=== PATIENT | female | born 1970 | race African-American/Black ===

== ENCOUNTER 2017-01-09 09:47 | Emergency (ER) | payer OTHER ==
[~2017-01-09] VITALS: Ht 157.5 cm; Wt 59.0 kg
[~2017-01-09 09:47] MED LIST: ALBUTEROL INHAL17 GM IH; ALDACTONE100 MG PO; ALDACTONE25 MG PO; ATIVAN0.5 MG PO; ATIVAN1 MG PO; AZITHROMYCIN 2250 MG PO; B-121000 MCG PO; CARAFATE 11 GM/10 M1 PO; CIPROFLOXACIN500 M1 PO; FLAGYL500 MG PO; FOLIC ACID 1 MG1 MG PO; FUROSEMIDE 40 M40 M1 PO; FUROSEMIDE 40 M40 MG PO; INDERAL PO; IRON325 PO; K-DUR 20 MEQ T20 MEQ PO; LACTULOSE PO; LACTULOSE20 GM/30 M PO; LEXAPRO 10 MG T10 MG PO; MEPHYTON 5 MG TA5 M1 PO; MULTI-VITAMIN1 EAC5 PO; MULTIVITAMINS1 EAC7 PO; NOHOMEMEDICATIONS; NORCO 7.5-3251 EACH PO; PHENERGAN-CODE120 ML PO; PREDNISONE 10 M10 M1; PRENATAL; PRENATAL COMPL1 EACH PO; PRENATAL MULTI1 EAC2 PO; PRENATAL PLUS1 EAC5 PO; PROAIR HFA8.5 GM INH; PROPRANOLOL 1010 MG PO; PROTONIX40 M2 PO; UNISOM50 MG PO; VITAMIN B-1100 MG PO; VITAMIN B-12500 MCG PO; VITAMIN D 5050000 I1 PO; XANAX 1 MG TABLE1 MG PO; ZYPREXA5 MG PO
[2017-01-09] MEDS ORDERED: LASIX 20 MG TAB20 MG PO (10:56)
[2017-01-09] MEDS ORDERED: PROPRANOLOL 1010 MG PO (10:56)
[2017-01-09] MEDS ORDERED: ZYRTEC10 M5 PO (10:57)
[2017-01-09] MEDS ORDERED: NORCO 5-325 TA1 EACH PO (11:09)
== END 2017-01-09 12:04 | disposition home or self-care (01) ==
LOC: ER 09:47
DX: S16.1XXA Strain of muscle, fascia and tendon at neck level, initial encounter (principal); S05.11XA Contusion of eyeball and orbital tissues, right eye, initial encounter; S09.90XA Unspecified injury of head, initial encounter; K74.60 Unspecified cirrhosis of liver; F32.9 Major depressive disorder, single episode, unspecified; G47.00 Insomnia, unspecified; F41.9 Anxiety disorder, unspecified; Z98.84 Bariatric surgery status; V43.52XA Car driver injured in collision with other type car in traffic accident, initial encounter; Y93.I9 Activity, other involving external motion; Y92.488 Other paved roadways as the place of occurrence of the external cause; Y99.8 Other external cause status

== ENCOUNTER 2019-01-03 13:07 | Emergency (ER) | payer OTHER ==
[~2019-01-03] VITALS: Ht 157.5 cm; Wt 81.7 kg
[~2019-01-03 13:07] MED LIST changes: +LASIX 20 MG TAB20 MG PO; +NORCO 5-325 TA1 EACH PO; +ZYRTEC10 M5 PO
[2019-01-03 14:35] LABS: ABSOLUTE NEUTROPHILS 3.7 thou/uL (1.4-8.2); BASOPHILS 0.2 % (0.0-2.0); EOSINOPHILS 1.4 % (0.0-3.0); HEMATOCRIT 35.2 % (37.0-47.0); LYMPHOCYTES 16.3 % (24.0-44.0); MCH 30.7 pg (26.0-34.0); MCV 90.3 fL (80.0-100.0); MONOCYTES 2.4 % (1.0-8.0); POLYS 79.7 % (36.0-66.0); RDW 13.2 % (10.5-14.5); WBC 4.7 thou/uL (4.0-11.0)
[2019-01-03 14:42] LABS: ANION GAP 11 mmol/L (7-16); BUN 15 mg/dL (7-18); CALCIUM 9.4 mg/dL (8.5-10.1); CHLORIDE 110 mmol/L (98-107); CO2 23 mmol/L (21-32); CREATININE 1.1 mg/dL (0.6-1.0); GLUCOSE 129 mg/dL (74-106); POTASSIUM 4.8 mmol/L (3.5-5.1); SODIUM 144 mmol/L (136-145)
[2019-01-03 14:52] LABS: ALBUMIN 3.3 g/dL (3.4-5.0); SGOT 24 U/L (15-37); SGPT 24 U/L (30-65); TOTAL BILIRUBIN 0.4 mg/dL (<0.1-1.0); TOTAL PROTEIN 7.4 g/dL (6.4-8.2); TROPONIN-I <0.06 ng/mL (<0.06)
[2019-01-03 14:53] LABS: PLATELET COUNT 97 thou/uL (150-400)
[2019-01-03 14:54] LABS: LARGE PLATELETS FEW
[2019-01-03 16:50] VITALS: BP 122/84
--- NOTE | 2019-01-04 09:28 | EKG ---
[place] [address] [facility] [place] [address] ELECTROCARDIOGRAM REPORT Name: TRACEY SIMS [id number] ������������������ Admission: 01/03/19 ������������������ Attend Phys: Discharge: 01/03/19 ������������������ Date of : 68 Report #: [id number] ����������������������������������������������������������������� [id number] THIS REPORT FOR: //name// [facility] ED Test Date: 2019-01-03 Test Time: 14:41:18 Pat Name: TRACEY SIMS Department: Room: Gender: F Er Registrar: mike : 1970 Requested By: Scott Rowan Order Number: [id number] MD: [place] Measurements Intervals [place] Rate: 91 P: 46 WY: 143 QRS: 38 QRSD: 80 T: 41 QT: 352 QTc: 434 Interpretive Statements Sinus rhythm Abnormal R-wave progression, early transition Baseline wander in lead(s) V1 Compared to ECG 05/29/2012 22:15:45 Sinus tachycardia no longer present Electronically Signed On 01-04-2019 9:28:30 CDT by [place] [email or web address] ��������������������������������������������� <ELECTRONICALLY SIGNED> ���������������������������������������� By: [place] MD, [facility] ��������������������������������������������� 01/04/19 0928 [id number] [place] MD, [facility] /EPI
== END 2019-01-03 16:30 | disposition home or self-care (01) ==
LOC: ER 13:07
PROVIDERS: Emergency Medicine
DX: M25.552 Pain in left hip (principal); F41.9 Anxiety disorder, unspecified; F32.9 Major depressive disorder, single episode, unspecified; G47.00 Insomnia, unspecified; Z98.84 Bariatric surgery status; W05.0XXA Fall from non-moving wheelchair, initial encounter; Y93.89 Activity, other specified; Y92.89 Other specified places as the place of occurrence of the external cause; Y99.8 Other external cause status

== ENCOUNTER 2019-09-12 22:40 | Emergency (ER) | payer OTHER ==
[~2019-09-12] VITALS: Ht 157.5 cm; Wt 99.8 kg
[2019-09-13 00:55] LABS: ABSOLUTE NEUTROPHILS 2.1 thou/uL (1.4-8.2); BASOPHILS 2.3 % (0.0-2.0); EOSINOPHILS 3.9 % (0.0-3.0); HEMATOCRIT 38.8 % (37.0-47.0); HEMOGLOBIN 12.6 gm/dL (12.0-15.0); LYMPHOCYTES 34.3 % (24.0-44.0); MCHC 32.5 g/dL (28.0-37.0); MCV 92.2 fL (80.0-100.0); MONOCYTES 7.7 % (1.0-8.0); PLATELET COUNT 112 thou/uL (150-400); POLYS 51.8 % (36.0-66.0); RBC 4.21 mil/uL (4.20-5.00); RDW 13.8 % (10.5-14.5); WBC 4.1 thou/uL (4.0-11.0)
[2019-09-13 00:57] LABS: CALCIUM 8.3 mg/dL (8.5-10.1); CREATININE 1.1 mg/dL (0.6-1.0); POTASSIUM 3.9 mmol/L (3.5-5.1)
[2019-09-13 01:25] LABS: URINE BILIRUBIN NEGATIVE (Negative); URINE BLOOD TRACE (Negative); URINE CLARITY CLOUDY; URINE COLOR YELLOW; URINE GLUCOSE-RANDOM* NEGATIVE (Negative); URINE KETONES NEGATIVE (Negative); URINE PROTEIN (DIPSTICK) NEGATIVE (Negative); URINE UROBILINOGEN 0.2 E.U./dl (0.2-1.0)
[2019-09-13 01:30] LABS: URINE LEUKOCYTES-REFLEX 3+ (Negative); URINE NITRITE-REFLEX POSITIVE (Negative)
[2019-09-13 01:45] LABS: BACTERIA-REFLEX >30 Many /HPF (None Seen); CASTS None Seen /LPF (None Seen); CRYSTALS None Seen /LPF (None Seen); MUCUS 0-3 Light strn/LPF (None Seen); SQUAMOUS 4-10 Moderate /LPF (0-3); URINE RBC 3-10 Few /HPF (0-2); URINE WBC-REFLEX >25 Many /HPF (0-5); WBC CLUMPS Moderate (None Seen)
[2019-09-13] MEDS ORDERED: KEFLEX500 M1 PO (02:16)
[2019-09-13] MEDS ORDERED: LASIX 20 MG TAB20 MG PO (02:17)
[2019-09-13 02:45] VITALS: BP 127/65
== END 2019-09-13 02:50 | disposition home or self-care (01) ==
LOC: ER 22:40
PROVIDERS: Emergency Medicine
DX: N39.0 Urinary tract infection, site not specified (principal); R60.0 Localized edema; F41.9 Anxiety disorder, unspecified; F32.9 Major depressive disorder, single episode, unspecified

== ENCOUNTER → 2020-02-18 | Outpatient (CLI) | payer OTHER ==
[~2020-02-18] VITALS: Ht 157.5 cm; Wt 90.7 kg
[~2020-02-18] MED LIST changes: +AMITRIPTYLINE H25 M4 PO; +BACLOFEN 10MG T10 MG PO; +DULCOLAX STOOL100 M1 PO; +FLOMAX0.4 MG PO; +GABAPENTIN600 M1 PO; +KEFLEX500 M1 PO; +KEPPRA100 MG/1 M PO; +MELOXICAM15 MG PO; +MONTELUKAST PO; +NUCYNTA ER100 MG PO; +NUCYNTA50 MG PO; +PERCOCET 5-3251 EACH PO; +PROTONIX 20 MG20 M1 PO; -PROTONIX40 M2 PO; +SEROQUEL 100 M100 M1 PO; +SERTRALINE HCL100 MG PO; +WELLBUTRIN SR150 M1 PO
--- NOTE | ~2020-02-18 | HPC ---
[facility] [place] [address] PAIN MANAGEMENT CONSULTATION Name: TRACEY SIMS Room #: REG [facility] Wayne.#: [id number] Admission: 02/18/20 Attend Phys: Aden Jacob DO Discharge: Date of : 68 Report #: [id number] THIS REPORT FOR: cc: Lin Kennedy Beth RNP Johnson, James E. DO ~ CC: Lin Jacob DATE OF SERVICE: 02/18/2020 REFERRING PHYSICIAN: ZEN David CHIEF COMPLAINT: Left hemibody pain. HISTORY OF PRESENT ILLNESS: As you know, the patient is a very unfortunate 49-year-old female who suffered a cerebrovascular accident on 06/22/2017, leaving her with hemiparesis of the left side. This also led to pain throughout the left upper extremity and lower extremity. The residual deficits from the cerebrovascular accident remained today. She has gained very little function back. She continues to experience pain at level anywhere from 6-8/10. The patient sought evaluation and treatment through various pain services having undergone multiple ineffective treatments including peripheral nerve stimulator to address left upper extremity pain, which gave no improvement in symptoms. She has undergone a spinal cord stimulator, which gave no improvement in symptoms and subsequently became infected and had to be removed. She has also been trialed on various medications, most effective to date has been Nucynta. She was provided Nucynta ER 50 mg 3 times a day along with use of oxycodone for breakthrough pain. The patient reported no improvement with oxycodone, only side effects of sleepiness, disorientation and confusion. She did receive excellent benefit with the Nucynta ER version, but the most recent prescription was for IR and was providing no long-term benefit. She sought evaluation through her primary care physician who requested that the patient undergo evaluation for a second opinion for treatment options. She was subsequently referred to our clinic. The patient reports today her pain is continuous, steady and constant, describes the pain as shooting, aching, cramping, throbbing, pounding, sharp, tendering, numbness and tingling. Places current pain score at 8/10, daily average at 7-8/10, worst pain has been is 10/10. The patient states that pain is exacerbated with any activity, transitioning from a wheelchair to bed. Pain is improved with elevation, medication management, heat and cold compresses and massage and rubbing. She has been referred to our service to discuss treatment options for left-sided body pain, status post cerebrovascular accident with residual deficits of left hemiparesis. [address] [address] PAIN MANAGEMENT CONSULTATION Name: TRACEY SIMS Room #: REG [facility] Wayne.#: [id number] Admission: 02/18/20 Attend Phys: Aden Jacob DO Discharge: Date of : 68 Report #: [id number] PAST MEDICAL HISTORY: 1. Cerebrovascular accident with residual left hemiparesis. 2. Bleeding tendencies. 3. Progressive liver disease. 4. Emotional problems such as anxiety and depression. 5. Degenerative joint disease. 6. Osteoarthritis. 7. Uncontrolled hypertension. PAST SURGICAL HISTORY: Brain surgery, 06/23/2017, status post CVA. SOCIAL HISTORY: The patient denies tobacco, alcohol, IV or illicit drug use. 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 She is not in litigation in regards to pain. She is accompanied by her in room today. REVIEW OF SYSTEMS: Positive for weight gain, decrease in appetite, left hemiparesis, breast pain, numbness and tingling sensations, paralysis, stroke, head injury, nervousness, depression, insomnia, left body hemiparesis and left body pain. All other review of systems negative per 12-point review of systems other than those listed in history of present illness. Pain impact score 47/70 indicating [id number] interference of daily activities secondary to pain. ALLERGIES: No known drug allergies. CURRENT MEDICATIONS: Tamsulosin 0.4 mg once a day, quetiapine 100 mg per day, meloxicam 15 mg once a day, Nucynta IR 50 mg twice a day, baclofen 10 mg 3 times a day, gabapentin 600 mg 3 times a day, Percocet 5/325 one tab p.o. q.8 hours p.r.n. for pain, docusate sodium 100 mg per day, amitriptyline 25 mg per day, sertraline 100 mg per day, bupropion SR 150 mg per day, montelukast sodium 10 mg per day, Keppra 100 mg twice a day, propranolol 10 mg 2 tabs p.o. q.a.m., pantoprazole 20 mg per day. IMAGING: No imaging available. PQRS: The patient has known arthritic changes of the bilateral knees, bilateral hips and lumbar spine. No diagnosis of rheumatoid arthritis. She is placing pain score at 8/10. She is a fall risk, but has not had a fall in last 3 months. She is wheelchair bound. She is not on blood thinners, but is treated for hypertension. She is on chronic opioids with a low opioid addiction potential based on our assessment tool. Pain impact is 47/70, moderate to severe interference of daily activities secondary to pain. [facility] [address] [place] [address] PAIN MANAGEMENT CONSULTATION Name: TRACEY SIMS Room #: REG [facility] Wayne.#: [id number] Admission: 02/18/20 Attend Phys: Aden Jacob DO Discharge: Date of : 68 Report #: [id number] PHYSICAL EXAMINATION: VITAL SIGNS: Blood pressure 105/80, pulse is 72, respiratory rate 14 and unlabored. The patient is 98% on room air. Height 5 feet 2 inches tall, weight 200 pounds, BMI calculated 36.6. GENERAL: Well-developed, well-nourished 49-year-old female, wheelchair bound with left-sided hemiparesis, appearing her stated age. She is in moderate distress secondary to pain, placing current pain score at 8/10. HEENT: Normocephalic, atraumatic. Pupils are round and reactive. NEUROLOGIC: Speech is altered due to a stroke and residual deficits. LUNGS: Clear, no wheeze, rhonchi or rales. CARDIOVASCULAR: Regular. No appreciable gallop, no rub. ABDOMEN: Soft, obese, normoactive bowel sounds. EXTREMITIES: Show no clubbing, no cyanosis. There is significant edema of the musculature of the left upper extremity and lower extremity. MUSCULOSKELETAL: The patient has minimal function of the left upper extremity and left lower extremity secondary to residual CVA deficits. There is some 1+ nonpitting left lower extremity edema. There is decreased tactile sensation throughout multiple dermatomes on the left, normal dermatomal sensation on the right. ASSESSMENT: 1. Cerebrovascular accident with residual deficits. 2. 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 3. Left hemibody pain secondary to cerebrovascular accident. 4. Chronic osteoarthritis of the bilateral knees. 5. Chronic intractable pain. 6. Opioid dependency. PLAN: 1. Based on today's physical exam and history the patient has provided, the description the patient uses in regards to pain as well as location of symptoms, the source appears to be thalamic in nature. The patient has been treated for peripheral pain generators unsuccessfully. She has undergone percutaneous stimulation of the shoulder, which has provided no benefit. She has also undergone an implantation of a spinal cord stimulator to address peripheral nerve radiculopathy from the lumbar spine, which is not the source of the patient's left lower extremity symptoms. All symptoms are related to a more centralized area secondary to this cerebrovascular accident and these treatment options were found to be unsuccessful. The patient reports no improvement with either of these devices. She did see improvement with medications which is consistent with more centralized pain pattern. We discussed at length over an hour and 20 minutes of time, the available treatment options. Unfortunately, there are limitations to therapy in regards to these issues. We discussed the options we have available. Following was discussed with the patient today. We discussed physical therapy, stretching exercises and mobility techniques, which could improve the patient's left hemiparetic pain. This can be done either [address] [address] PAIN MANAGEMENT CONSULTATION Name: TRACEY SIMS Room #: REG [facility] [place]#: [id number] Admission: 02/18/20 Attend Phys: Aden Jacob DO Discharge: Date of : 68 Report #: [id number] passively or actively as the patient may gain some function, though this is limited in its scope it could provide some improvement. We discussed medication management utilizing medications, which have neuropathic components for treatment. These would include medications such as nortriptyline, amitriptyline, Cymbalta, Lyrica, gabapentin as well as the more novel medications for pain such as Nucynta, which have not only mu receptor agonists, but also norepinephrine reuptake inhibition, which can provide neuropathic pain control. Other options could include methadone, which will provide a multifactorial treatment affecting not only the mu receptor but also norepinephrine reuptake and NMDA receptor effects. We also discussed surgical techniques, which may help with some of the symptoms that she is experiencing such as a total knee arthroplasty to affect arthritic changes of the knees that is still functioning well. After this long discussion, the patient chose to begin with medication management. The patient has done very well with Nucynta in the past, she was on 50 mg of Nucynta in the extended release formulation. She was taking this 3 times a day. At some point in time, she has had a change in the medication. Her current medication dosing is 50 mg of Nucynta immediate release, which is providing benefit, but unfortunately for a very short period of time. We recommend adjustments back to the ER version of medication. The fact the patient is taking both Nucynta ER and utilizing Percocet for breakthrough would indicate that a higher dose of mu agonist would be necessary. We recommend an increase to 100 mg of Nucynta ER twice a day. This will give the patient equivalent efficacy as she is seeing with both the Nucynta IR and Percocet at present. We recommend that she start this medication at this dose, specifically to gain analgesic benefit and potentially reduce her reliance on immediate release formulations which will be problematic long-term. We have provided the patient with a prescription of Nucynta ER 100 mg dose b.i.d. I have given the patient #60 tablets. The patient was advised that coverage of this medication can be sometimes difficult, though I believe given her history of lack of efficacy with other therapies, this should be a considered option for treatment. She was provided a prescription in written form today to take to her local pharmacy. 2. Our plans are to stabilize the patient on medication, optimize therapy for analgesic benefit and return her care to primary team for continuation of the treatment. We have reviewed the patient's neuropathic medications. Currently, she is taking amitriptyline at 25 mg p.o. at bedtime. This could be increased all the way to 150 mg if necessary. We will have to watch for side effects with its use. There is also a potential of increasing her gabapentin as she is only taking 600 mg 3 times a day at present. This could be escalated to 1200 mg 3 times a day as adjunctive treatment option and neuropathic pain control. We will make adjustments slowly initially so that we do not cause more dysfunction in the patient and measure the efficacy of each ulceration. The patient is agreeable with plan. [address] [address] PAIN MANAGEMENT CONSULTATION Name: TRACEY SIMS Room #: REG [facility] [place]#: [id number] Admission: 02/18/20 Attend Phys: Aden Jacob DO Discharge: Date of : 68 Report #: [id number] 3. The patient currently has peripheral nerve stimulator implanted affecting the left upper extremity. She is receiving no benefit with this device. It will ultimately have to be removed. I have advised the patient to follow up with the surgeon who implanted for explantation of this device. 4. We have plans to see the patient back in followup visit in approximately 2-3 weeks. At that time, review the efficacy of the medication changes made today, determine if the other treatment options such as increasing amitriptyline and gabapentin will be necessary. We are hopeful the patient will see good and prolonged benefit with the therapy changes made today. 5. We wish to thank nurse practitioner, Lin Kennedy for the referral of the patient to our clinic. We will keep you apprised of her response to treatment as we adjust her medications to optimize therapy. Once this is completed, we will be returning the patient to her primary care to continue the treatment. We are hopeful the patient will see good improvement with adjustments in medication management. We will contact with the patient throughout the adjustments in therapy. Again, we wish to thank nurse practitioner, iLn Kennedy for the opportunity to see the patient in consultation. By: [phone] Aden Jacob DO /nt
[2020-02-18 15:16] VITALS: BP 105/80
--- NOTE | 2020-02-18 16:04 | NUR ---
Pain Clinic Assessment: 1. History of Osteoarthritis: Left Lower Extremity Right Lower Extremity History of Rheumatoid Arthritis: Not Applicable 2. Height: 5 ft. 2 in. 157.5 cm. Weight: 200.0 lb. oz. 90.720 kg. Patient's BMI: 36.6 3. Vital Signs: BP: 105/80 Pulse: 72 Resp: 14 Temp: 02 Sat: 98 ECG Mon: 4. Pain Intensity: 8 5. Fall Risk: Dizziness: N Needs help standing or walking: Y Fallen in the last 3 months: N Fall risk comments: 6. Patient on Blood Thinner: None 7. History of Hypertension: Y 8. Opioid Therapy greater than 6 weeks: Y Opiate Contract Signed: 9. Risk Assessment Tool Provided: 10. Functional Assessment Tool: 11. Recreational Drug Use: Never Drug Type: Tobacco Use: Never Smoker Tobacco Type: Amount or Packs/day: How Many Years: Alcohol Use: No Frequency: Quant:
== END ==
LOC: PAIN 07:01
PROVIDERS: ATTEND Anesthesiology Pain Medicine
DX: I69.954 Hemiplegia and hemiparesis following unspecified cerebrovascular disease affecting left non-dominant side (principal); I63.9 Cerebral infarction, unspecified; D68.9 Coagulation defect, unspecified; M19.90 Unspecified osteoarthritis, unspecified site; I10 Essential (primary) hypertension; F41.8 Other specified anxiety disorders; K76.9 Liver disease, unspecified

== ENCOUNTER → 2020-03-24 | Outpatient (CLI) | payer OTHER ==
[~2020-03-24] MED LIST changes: +NUCYNTA ER50 MG PO
[2020-03-24 13:01] VITALS: BP 112/61
--- NOTE | 2020-03-24 13:12 | NUR ---
Pain Clinic Assessment: 1. History of Osteoarthritis: Left Lower Extremity Right Lower Extremity History of Rheumatoid Arthritis: Not Applicable 2. Height: ft. in. cm. Weight: lb. oz. kg. Patient's BMI: 3. Vital Signs: BP: 112/61 Pulse: 91 Resp: 16 Temp: 02 Sat: 100 ECG Mon: 4. Pain Intensity: 8 5. Fall Risk: Dizziness: N Needs help standing or walking: Y Fallen in the last 3 months: N Fall risk comments: 6. Patient on Blood Thinner: None 7. History of Hypertension: Y 8. Opioid Therapy greater than 6 weeks: Y Opiate Contract Signed: 9. Risk Assessment Tool Provided: 10. Functional Assessment Tool: 11. Recreational Drug Use: Never Drug Type: Tobacco Use: Never Smoker Tobacco Type: Amount or Packs/day: How Many Years: Alcohol Use: No Frequency: Quant:
--- NOTE | 2020-03-25 13:52 | HPC ---
[facility] [place] [address] PAIN MANAGEMENT CONSULTATION Name: TRACEY SIMS Room #: REG [facility] M.R.#: [id number] Admission: 03/24/20 Attend Phys: Patricia Thapa Discharge: Date of : 68 Report #: [id number] THIS REPORT FOR: cc: Lin Kennedy Beth RNP Hocker,Patricia POTTER ~ CC: Aden Jacob DO DATE OF SERVICE: 03/24/2020 CHIEF COMPLAINT: Left hemibody pain, post cerebrovascular accident. HISTORY OF PRESENT ILLNESS: This is a 49-year-old female who returns for a followup visit here in the pain clinic today to discuss her pain medications. Dr. Aden Jacob saw her on 02/18/2020 in consult for the very first time. At that time, he had agreed to write her pain medications for her that had previously been written for by Dr. Slater, was our understanding that they were no longer going to be seeing that doctor. The patient and her were agreeable to having Dr. Jacob write her opioid medications and she did sign an opioid contract with our physician to help treat her ongoing left hemibody pain. She complains of pain in her left arm, foot and back. Today, she is also complaining of pain in her mouth. She recently had all of her bottom teeth removed. She is reporting a pain score of 6/10. The patient and her were to return to our clinic last week and they did not call to cancel that appointment, they had an emergency per their report. Today, when we were reviewing our chart, it had come to our attention that she has recently filled 2 prescriptions from Yenni Ingram for oxycodone and Nucynta 50 mg and one prescription for tramadol 50 mg tablets from her dentist. When we questioned the patient and regarding these prescriptions, he reported that the tramadol was for her tooth pain, which she has been taking. She has 2 pills left. He did go and see Yenni Ingram, the nurse practitioner at Dr. Birmingham's office one final time and told them they would no longer be returning per his report, but did take a prescription and had filled it. He states that she has not taken any oxycodone since she has been taking the Nucynta ER. She has taken a few Nucynta 50 mg tablets because the 100 mg ER tablets make her too sedated during the day. No phone calls to our clinic were made by them about any of this. According to the and the patient, her pain is very well controlled at night on the Nucynta ER 100 mg. She finds that very beneficial and allowing her to sleep, but during the day, she feels overmedicated on the 100 mg tablets, very sedated. She is unable to perform activities and go to therapy, so during the day the has been offering her Nucynta 50 mg. The patient has not called us to report any of these findings since we last saw them on 02/18/2020. I explained to the patient and the family member that this is a violation of [address] [address] PAIN MANAGEMENT CONSULTATION Name: TRACEY SIMS Room #: REG CLPatricia Castro#: [id number] Admission: 03/24/20 Attend Phys: Patricia Thapa Discharge: Date of : 68 Report #: [id number] several parts of our opioid contract. I will discuss this case with Dr. Aden Jacob to see where he would like to continue writing medications and offering for the patient since we had only had one visit with her. We have no relationship built with this patient. We do feel that this medication is appropriate to help her thalamic pain and again she did state that it was beneficial, but there have been several incidences in this last month that have caused them to violate her contract. ALLERGIES: No known drug allergies. CURRENT LIST OF MEDICATIONS: Tapentadol 100 mg ER b.i.d., Flomax, Seroquel, meloxicam, Nucynta 50s, baclofen, gabapentin, Dulcolax, amitriptyline, sertraline, Wellbutrin, Singulair, Keppra, Inderal and Protonix. PQRS: She has known arthritic changes in her knees, hips and spine with no diagnosis of rheumatoid arthritis. Did not perform a height and weight on her. Blood pressure is 112/61, pulse is 91, respirations 16, oxygen sat is 100. Pain score is 6/10. Denies dizziness. Does need assistance with ambulation in all ADLs. She has not fallen in the last 3 months. She is in a wheelchair. She is not on any blood thinners, but does take medicine for hypertension. Her opioid therapy is greater than 6 weeks. There is an opioid signed contract on the chart. Risk assessment is low. Based on our assessment tool her impact score is 47/70. Recreational drug use, she denies. She is not a smoker and does not drink alcohol. Again, according to the prescription monitoring system, she has filled 3 prescriptions since our last visit, two with Yenni Ingram, one with her dentist. If she was only taking our prescription, her morphine milliequivalent will be 80 MME per day. We will obtain a urine drug specimen from this patient today prior to her being discharged. PHYSICAL EXAMINATION: GENERAL: This is a well-developed, well-nourished 49-year-old wheelchair bound, left-sided hemiparesis female who appears her stated age. She is quite sedate, falling asleep during our conversation today, rating her pain score at 6/10. HEENT: Normocephalic, atraumatic. Pupils round and reactive. The patient does have missing teeth on her top gumline and ecchymosis area noted around her mouth from previous tooth extraction. NEUROLOGICAL: Speech is altered due to her stroke with residual deficits. EXTREMITIES: No clubbing, no cyanosis. She has edema in her left upper and lower extremities. Her left upper extremity is in a sling. MUSCULOSKELETAL: Again 1+ edema in her lower extremities. She reports pain in her left leg and arm. She has good use of her right upper and lower extremities. Her left lower ones have residual due to her cerebrovascular deficits. [facility] [address] [place] [address] PAIN MANAGEMENT CONSULTATION Name: TRACEY SIMS Room #: REG REZA Castro#: [id number] Admission: 03/24/20 Attend Phys: Patricia Thapa Discharge: Date of : 68 Report #: [id number] ASSESSMENT: 1. Cerebrovascular accident with residual effects. 2. 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 3. Left hemibody pain secondary to cerebrovascular accident. 4. Chronic osteoarthritis. 5. Opioid dependency. 6. Medication management under opioid agreement. PLAN: 1. We discussed treatment options with the patient today. This conversation included the . I explained to them in great detail how they had violated the opioid agreement that they had sign at their one and only visit with us on 02/18/2020 by filling opioid medications on 03/12/2020 and again on 03/18/2020 from two doctors and also that they were a no show to their last appointment. The does verbalize understanding as well as the patient. They report to me that they did see Dr. Slater's office one last time to report they will no longer be going there instead of just calling to cancel the appointment. They also picked up the prescription and have in their possession at home, the medicines that they filled at this last office visit. Per both of those reports she is not taking any oxycodone since filling our Nucynta 100 mg. 2. The patient has been taking tramadol from her dentist for her mouth pain since having several teeth removed. I explained to the patient that there is a serotonin syndrome potential with her antidepressant medicines and tramadol. I encouraged them to stop this medicine and to not have any further refills from their dentist due to; one, their contract and two, this possible complications that may arise from these interaction of medicines. 3. I spoke with Dr. Aden Jacob in depth regarding the situation. We decided that we would provide the patient with an additional opportunity to show us that they will only fill medicines from our office, come to appointments in a timely fashion and abide by the guidelines that we have put forth in the opioid agreement. Today, we will collect a random drug screen on this patient. Per their report, it should only have Nucynta and tramadol. Second guideline is they will come in 2 weeks for another appointment and continue on 2-week intervals until we see fit. 4. The went home and retrived medication and the nurses any myself counted and destroyed Nucynta 50mg 46 pills, Oxycodone 5/325 90 pills and 4 Tramadol 50mg tablets. They report no further opioids in the house. all opioids that they have at the house. Dr. Aden Jacob will provide a script for Nucynta ER 50 mg to take in the morning, Nucynta 100 mg ER to take at bedtime for a 2-week supply. Appointment will be made to come back in 2 weeks. 5. The patient is seen today in collaboration with Dr. Aden Jacob. <ELECTRONICALLY SIGNED> By: Patricia Thapa 03/25/20 1352 [id number] Patricia Thapa /nt
== END ==
LOC: PAIN 03-17 06:51
PROVIDERS: ATTEND Clinical Nurse Specialist Adult Health
DX: I69.354 Hemiplegia and hemiparesis following cerebral infarction affecting left non-dominant side (principal); M19.90 Unspecified osteoarthritis, unspecified site; G89.29 Other chronic pain; Z79.891 Long term (current) use of opiate analgesic

== ENCOUNTER 2020-03-29 12:16 | Emergency (ER) | payer OTHER ==
[~2020-03-29] VITALS: Ht 154.9 cm; Wt 90.7 kg
[2020-03-29 13:22] LABS: ABSOLUTE NEUTROPHILS 2.4 thou/uL (1.4-8.2); BASOPHILS 0.5 % (0.0-2.0); EOSINOPHILS 1.8 % (0.0-3.0); HEMATOCRIT 38.1 % (37.0-47.0); HEMOGLOBIN 13.3 gm/dL (12.0-15.0); LYMPHOCYTES 27.7 % (24.0-44.0); MCH 32.4 pg (26.0-34.0); MCHC 34.9 g/dL (28.0-37.0); MCV 92.9 fL (80.0-100.0); MONOCYTES 7.8 % (1.0-8.0); POLYS 62.2 % (36.0-66.0); RBC 4.11 mil/uL (4.20-5.00); RDW 13.5 % (10.5-14.5); WBC 3.9 thou/uL (4.0-11.0)
[2020-03-29 13:39] LABS: ANION GAP 10 mmol/L (7-16); BUN 5 mg/dL (7-18); CALCIUM 8.4 mg/dL (8.5-10.1); CHLORIDE 106 mmol/L (98-107); CO2 24 mmol/L (21-32); CREATININE 1.1 mg/dL (0.6-1.0); GLUCOSE 84 mg/dL (74-106); POTASSIUM 3.6 mmol/L (3.5-5.1); SODIUM 140 mmol/L (136-145)
[2020-03-29 13:48] LABS: MAGNESIUM 1.5 mg/dL (1.8-2.4); TROPONIN-I <0.06 ng/mL (<0.06)
[2020-03-29 14:03] LABS: PLATELET COUNT 74 thou/uL (150-400)
[2020-03-29 14:38] LABS: URINE BLOOD NEGATIVE (Negative); URINE CLARITY CLEAR; URINE COLOR YELLOW; URINE GLUCOSE-RANDOM* NEGATIVE (Negative); URINE KETONES NEGATIVE (Negative); URINE LEUKOCYTES-REFLEX NEGATIVE (Negative); URINE NITRITE-REFLEX NEGATIVE (Negative); URINE PROTEIN (DIPSTICK) NEGATIVE (Negative); URINE SPECIFIC GRAVITY 1.015 (1.005-1.035)
[2020-03-29 14:41] LABS: ICTOTEST (BILI CONFIRMATORY) Negative (Negative); URINE BILIRUBIN NEGATIVE (Negative)
[2020-03-29 15:07] LABS: ALBUMIN 2.8 g/dL (3.4-5.0); DIRECT BILIRUBIN 0.8 mg/dL (<0.1-0.2); TOTAL BILIRUBIN 1.9 mg/dL (0.2-1.0); TOTAL PROTEIN 8.2 g/dL (6.4-8.2)
[2020-03-29] MEDS ORDERED: LORAZEPAM 0.50.5 MG PO (16:34)
[2020-03-29 17:21] VITALS: BP 148/68
--- NOTE | 2020-03-30 09:22 | EKG ---
[facility] [place] [address] ELECTROCARDIOGRAM REPORT Name: TRACEY SIMS Room #: DEP [facility]#: [id number] Admission: 03/29/20 Attend Phys: Discharge: 03/29/20 Date of : 68 Report #: [id number] THIS REPORT FOR: cc: Lin Kennedy Beth RNP Lundgren, Craig H. MD [facility] THIS REPORT FOR: //name// [facility] ED Test Date: 2020-03-29 Test Time: 13:36:24 Pat Name: TRACEY SIMS Department: Room: Gender: F [employer] Analyst: [facility] : 1970 Requested By: Jed Alcaraz Order Number: [id number] MD: Castro Bay Measurements Intervals [place] Rate: 96 P: 34 WV: 162 QRS: -3 QRSD: 124 T: -16 QT: 403 QTc: 510 Interpretive Statements Sinus rhythm Nonspecific T abnormalities, diffuse leads Compared to ECG 12/30/2019 20:46:57 No significant change was found Electronically Signed On 03-30-2020 9:22:30 CDT by Castro aBy [email or web address] <ELECTRONICALLY SIGNED> By: Castro Bay MD, [facility] 03/30/20 0922 1336 1336 Castro Bay MD, [facility] /EPI
== END 2020-03-29 17:30 | disposition home or self-care (01) ==
LOC: ER 12:16
PROVIDERS: Emergency Medicine
DX: R53.1 Weakness (principal); M25.562 Pain in left knee; Z86.73 Personal history of transient ischemic attack (TIA), and cerebral infarction without residual deficits; Z79.899 Other long term (current) drug therapy

== ENCOUNTER → 2020-04-07 | Outpatient (CLI) | payer OTHER ==
[~2020-04-07] MED LIST changes: +CEFUROXIME500 MG PO; +LORAZEPAM 0.50.5 MG PO; +MAGNESIUM250 M1 PO
[2020-04-07 12:52] VITALS: BP 124/79
--- NOTE | 2020-04-07 13:08 | NUR ---
Pain Clinic Assessment: 1. History of Osteoarthritis: Left Lower Extremity Right Lower Extremity History of Rheumatoid Arthritis: Not Applicable 2. Height: ft. in. cm. Weight: 200.0 lb. oz. 90.720 kg. Patient's BMI: 3. Vital Signs: BP: 124/79 Pulse: 97 Resp: 16 Temp: 02 Sat: 96 ECG Mon: 4. Pain Intensity: 4 5. Fall Risk: Dizziness: N Needs help standing or walking: Y Fallen in the last 3 months: N Fall risk comments: 6. Patient on Blood Thinner: None 7. History of Hypertension: Y 8. Opioid Therapy greater than 6 weeks: Y Opiate Contract Signed: 02/18/20 9. Risk Assessment Tool Provided: 4- moderate 10. Functional Assessment Tool: 11. Recreational Drug Use: Never Drug Type: Tobacco Use: Never Smoker Tobacco Type: Amount or Packs/day: How Many Years: Alcohol Use: No Frequency: Quant:
--- NOTE | 2020-04-08 07:39 | HPC ---
[facility] [address] [place] [address] PAIN MANAGEMENT CONSULTATION Name: TRACEY SIMS Room #: REG [facility] MTheodora.#: [id number] Admission: 04/07/20 Attend Phys: Patricia Thapa Discharge: Date of : 68 Report #: [id number] THIS REPORT FOR: cc: Lin Kennedy Beth RNP Hocker,Patricia POTTER ~ CC: Aden Jacob DO DATE OF SERVICE: 04/07/2020 CHIEF COMPLAINT: Left hemibody pain post-cerebral accident. HISTORY OF PRESENT ILLNESS: This is a 49-year-old female, who is here with her today to discuss the recent changes we made in their opioid therapy. Per the patient's report, her pain score is a 4/10. She feels that the Nucynta extended release has been beneficial in helping relieve some of her pain. She feels like she is less sedated during the day by taking 50 mg in the morning and finds that she sleeps better at night taking 100 mg. She reports that her pain is more even throughout the day with the current regimen she is on. She would like to continue with these medications. We are treating the patient for her low back, left leg and foot pain as a result of her stroke. Her pain is worse with inactivity and transfers. She feels that if she elevates her arm and leg it helps reduce some of her swelling, as well as distraction and her medications. She feels quite comfortable. She does report she went to the Emergency Room for a possible urinary tract infection and dehydration. She was having some constipation issues as well. She has increased her oral intake and feels that some of those issues have been resolved. ALLERGIES: No known drug allergies. CURRENT LIST OF MEDICATIONS: Ceftin, magnesium, Ativan, Nucynta 50 mg ER in the morning, Nucynta 100 mg ER at bedtime, Flomax, Seroquel, meloxicam, baclofen, gabapentin, Colace, amitriptyline, sertraline, Wellbutrin, Singulair, Keppra, Inderal, and Protonix. PATIENT'S PQRS: 1. She has osteoarthritic changes in her lower extremities. Denies any rheumatoid arthritis, weight is 200. 2. Vital signs 124/79, pulse is 97, respirations 16, oxygen sat is 96. 3. Pain score is 4/10. 4. Denies dizziness. Does need assistance with ambulation and transfers. Has not fallen in the last 3 months. The patient is not on any blood thinners, but does take medicine for hypertension. 5. Opioid therapy is greater than 6 weeks; therefore, an opioid signed contract [address] [address] PAIN MANAGEMENT CONSULTATION Name: TRACEY SIMS Room #: REG CL Gloria#: [id number] Admission: 04/07/20 Attend Phys: Patricia Thapa Discharge: Date of : 68 Report #: [id number] is on the chart. Risk assessment is moderate. Functional assessment is 47/70. 6. Recreational drug use, she denies. She is not a smoker and does not drink alcohol. According to the prescription monitoring system, she did fill our 2 medications since her last visit and no further opioids from any other physicians. Her morphine mEq according to the CDC guidelines will be 60 MMEs. We did check a drug screen on her last visit and it was appropriate for the medications that they reported to us; therefore, Dr. Aden Jacob will agree to provide her medicines on a monthly basis for her opioids. PHYSICAL EXAMINATION: GENERAL: This is a well-developed, well-nourished 49-year-old female who is wheelchair bound with left-sided hemiparesis. She appears her stated age. She is answering questions today and is alert, rating her pain score 4/10. HEENT: Normocephalic, atraumatic. Pupils are round and reactive to light. She is wearing a mask. NEUROLOGICAL: Speech is altered due to her stroke with residual deficits. EXTREMITIES: No clubbing, no cyanosis. She has edema in her left lower extremity of 1+. MUSCULOSKELETAL: She is able to move her right side of her body without any limitations. She has residual effects on her left side of her body from her cerebrovascular accident. ASSESSMENT: 1. Cerebrovascular accident with residual effects. 2. Hemiparesis secondary to cerebrovascular accident. 3. Hemibody pain secondary to her cerebrovascular accident. 4. Chronic osteoarthritis. 5. Opioid dependency. 6. Medication management under written agreement. We reviewed the fact that opiate medications are being used to provide analgesia adequate to support activities of daily living, not attempting to achieve a specific pain score on the 0-10 Visual Analog Scale. The current opiate medications are providing sufficient analgesia to allow the patient to participate in activities of daily living. The patient is not exhibiting any aberrant behavior suggestive of drug diversion. The patient is not having any adverse reactions to medications. The patient is not suffering from daytime somnolence or mental acuity changes. The patient is managing opiate-induced constipation with appropriate [id number] agents and dietary considerations. The patient was counseled on concern for caution with operating a motor vehicle while using opiate medications. PLAN: 1. We discussed treatment options with the patient today. Feels that the [facility] [address] [place] [address] PAIN MANAGEMENT CONSULTATION Name: TRACEY SIMS Room #: REG [facility]#: [id number] Admission: 04/07/20 Attend Phys: Patricia Thapa Discharge: Date of : 68 Report #: [id number] medications we trialled for 2 weeks have been beneficial. We will continue her on her Nucynta ER 50 mg in the morning and Nucynta 100 mg ER in the evening. Scripts will be sent electronically for a 30-day supply of both medications. The patient is instructed to keep these safeguarded along with her and to not fill any other opioids from any other providers. 2. The patient did go to the Emergency Room for dehydration. Explained to them that it is okay if she does get medications while she is in the Emergency Room, but not to have a script to take home for any opioids. They verbalized understanding. 3. The questioned if we will take over writing her baclofen, meloxicam, and gabapentin. I encouraged them to have their primary doctor write these at the present time. 4. The patient is seen today in collaboration with Dr. Aden Jacob. Appointment made for 30 days. <ELECTRONICALLY SIGNED> By: Patricia Thapa 04/08/20 0739 [id number] 1458 Patricia Thapa /nt
== END ==
LOC: PAIN 06:54
PROVIDERS: ATTEND Clinical Nurse Specialist Adult Health
DX: I69.351 Hemiplegia and hemiparesis following cerebral infarction affecting right dominant side (principal); M19.90 Unspecified osteoarthritis, unspecified site; I63.9 Cerebral infarction, unspecified; F11.20 Opioid dependence, uncomplicated; Z79.899 Other long term (current) drug therapy

== ENCOUNTER → 2020-04-10 | Outpatient (CLI) | payer OTHER | LOC: ULTRA 10:35 | PROVIDERS: ATTEND Nurse Practitioner | DX: K76.0 Fatty (change of) liver, not elsewhere classified (principal); R94.5 Abnormal results of liver function studies; R16.1 Splenomegaly, not elsewhere classified; K80.20 Calculus of gallbladder without cholecystitis without obstruction; I65.23 Occlusion and stenosis of bilateral carotid arteries; H53.9 Unspecified visual disturbance ==

== ENCOUNTER → 2020-05-05 | Outpatient (CLI) | payer OTHER ==
[2020-05-05 12:51] VITALS: BP 128/63
--- NOTE | 2020-05-05 13:07 | NUR ---
Pain Clinic Assessment: 1. History of Osteoarthritis: Left Lower Extremity Right Lower Extremity History of Rheumatoid Arthritis: Not Applicable 2. Height: ft. in. cm. Weight: 200.0 lb. oz. 90.720 kg. Patient's BMI: 3. Vital Signs: BP: 128/63 Pulse: 85 Resp: 14 Temp: 02 Sat: 95 ECG Mon: 4. Pain Intensity: 5 5. Fall Risk: Dizziness: N Needs help standing or walking: Y Fallen in the last 3 months: N Fall risk comments: 6. Patient on Blood Thinner: None 7. History of Hypertension: Y 8. Opioid Therapy greater than 6 weeks: Y Opiate Contract Signed: 02/18/20 9. Risk Assessment Tool Provided: 4- moderate 10. Functional Assessment Tool: 11. Recreational Drug Use: Never Drug Type: Tobacco Use: Never Smoker Tobacco Type: Amount or Packs/day: How Many Years: Alcohol Use: No Frequency: Quant:
--- NOTE | 2020-05-06 15:44 | HPC ---
[facility] [address] [place] [address] PAIN MANAGEMENT CONSULTATION Name: TRACEY SIMS Room #: REG [facility]..#: [id number] Admission: 05/05/20 Attend Phys: Patricia Thapa Discharge: Date of : 68 Report #: [id number] THIS REPORT FOR: cc: Lin Kennedy Beth RNP Hocker,Patricia POTTER ~ CC: Aden Jacob DO DATE OF SERVICE: 05/05/2020 CHIEF COMPLAINT: Left hemibody pain post cerebral accident. HISTORY OF PRESENT ILLNESS: This is a 49-year-old female who returns to the pain clinic today with her to discuss her ongoing pain regimen. Per their report, her pain level is a 5/10 today, mostly located in her left knee and ankle as well as her left shoulder. They do feel that the Nucynta has been beneficial in relieving significant portion of her pain. She is less sedated during the day, taking 50 mg in the morning and 100 mg at night. She sleeps at least 8 hours a night per her 's report. She does complain of pain throughout the day at various intervals and the is wondering about a short acting medication. Today, she states that her pain is occasionally sharp, aching and throbbing, especially when she is inactive. She feels like she has been in increased stiffness that the medications, heat and distraction are beneficial. He does state that she has issues with constipation and they have been using Dulcolax tablets on a regular basis. ALLERGIES: No known drug allergies. CURRENT LIST OF MEDICATIONS: Nucynta ER 50 mg in the morning, Nucynta ER 100 mg at bedtime, magnesium, Flomax, Seroquel, meloxicam, baclofen, gabapentin, amitriptyline, Zoloft, bupropion, Singulair, Keppra, Inderal and Protonix. PQRS: 1. History of osteoarthritis in her bilateral lower extremities. Denies any rheumatoid arthritis. Weight is 200, no height. Vital signs: Blood pressure 128/63, pulse is 85, respirations 14, oxygen sat is 95, pain score is 5/10. Fall risk: Denies dizziness. Does need assistance with walking and standing and is in a wheelchair majority of the time, she has not fallen in the last 3 months. The patient is not on any blood thinners, but does take medicine for hypertension. Her opioid therapy is greater than 6 weeks. We have an opioid signed contract on the chart. Her risk assessment is moderate. Functional assessment is 47/70. 2. Recreational drug use, she denies. She is not a smoker, never has and does not drink alcohol. According to the prescription monitoring system, [place] [address] PAIN MANAGEMENT CONSULTATION Name: TRACEY SIMS [id number] Admission: 05/05/20 Attend Phys: Patricia Thapa Discharge: Date of : 68 Report #: [id number] a timely fashion. We see her on a monthly basis. Morphine milliequivalent is 60 MME according to the CDC. She does have lorazepam that she feels very sparingly as well. There is a drug screen on the chart that is appropriate for her medications. PHYSICAL EXAMINATION: GENERAL: This is a well-developed, well-nourished 49-year-old female who is wheelchair bound with left sided hemiparesis. She appears her stated age. She is answering questions appropriately today. Pain score is a 5/10. HEENT: Normocephalic, atraumatic. Pupils equal and reactive to light. She is wearing a mask. NEUROLOGICAL: Speech is altered due to her stroke with residual effects. EXTREMITIES: No clubbing, no cyanosis, no edema on her left lower extremity and has compression stockings on her lower extremities. MUSCULOSKELETAL: She is able to move the right side without limitations and has residual effects on her left side from her cerebrovascular accident. ASSESSMENT: 1. Cerebrovascular accident with residual effects. 2. Hemiparesis secondary to cerebrovascular accident with hemibody pain. 3. Chronic osteoarthritis. 4. Opioid dependency. 5. Opioid medications under written agreement. We reviewed the fact that opiate medications are being used to provide analgesia adequate to support activities of daily living, not attempting to achieve a specific pain score on the 0-10 Visual Analog Scale. The current opiate medications are providing sufficient analgesia to allow the patient to participate in activities of daily living. The patient is not exhibiting any aberrant behavior suggestive of drug diversion. The patient is not having any adverse reactions to medications. The patient is not suffering from daytime somnolence or mental acuity changes. The patient is managing opiate-induced constipation with appropriate iilb-tox-rdhicvp agents and dietary considerations. The patient was counseled on concern for caution with operating a motor vehicle while using opiate medications. PLAN: 1. We discussed treatment options with the patient and family today. They feel overall the Nucynta has been beneficial affording much less side effects than she had had before. We will continue her on Nucynta ER 50 mg in the morning and Nucynta 100 mg ER at night, quantity 30 written for each of these medicines, will be sent electronically by Dr. Aden Jacob to her pharmacy. 2. We did talk about her ongoing constipation issues, encouraging her to use MiraLax to see if that is beneficial, finding the right dose, possibly daily, every other day or every third day and hopefully, she will not need to result to using a stimulant laxative. Encouraging her also to drink plenty of liquids. [facility] [address] [place] [address] PAIN MANAGEMENT CONSULTATION Name: TRACEY SIMS Room #: REG [facility] [place].#: [id number] Admission: 05/05/20 Attend Phys: Patricia Thapa Discharge: Date of : 68 Report #: [id number] 3. We discussed short-acting medications. At this time, we are not wanting to provide any further opioids. I encouraged the if the patient does complain of pain he may offer her a Tylenol Extra Strength 1-2 tablets maximum of 4 tablets per day. 4. The patient will return in 1 month. Appointment will be made prior to discharge. The patient is seen in collaboration with Dr. Aden Jacob. <ELECTRONICALLY SIGNED> By: Patricia Thapa 05/06/20 1544 [id number] [id number] Patricia Thapa /nt
== END ==
LOC: PAIN 06:45
PROVIDERS: ATTEND Clinical Nurse Specialist Adult Health
DX: I69.954 Hemiplegia and hemiparesis following unspecified cerebrovascular disease affecting left non-dominant side (principal); M19.90 Unspecified osteoarthritis, unspecified site; F11.20 Opioid dependence, uncomplicated; Z79.899 Other long term (current) drug therapy

== ENCOUNTER 2020-05-19 19:50 | Emergency (ER) | payer OTHER ==
[~2020-05-19] VITALS: Ht 154.9 cm; Wt 79.4 kg
[2020-05-19 21:19] LABS: ABSOLUTE NEUTROPHILS 3.8 thou/uL (1.4-8.2); BASOPHILS 0.3 % (0.0-2.0); EOSINOPHILS 1.3 % (0.0-3.0); HEMATOCRIT 38.3 % (37.0-47.0); LYMPHOCYTES 28.5 % (24.0-44.0); MCH 31.8 pg (26.0-34.0); MCHC 34.1 g/dL (28.0-37.0); MCV 93.2 fL (80.0-100.0); MONOCYTES 8.2 % (1.0-8.0); PLATELET COUNT 131 thou/uL (150-400); POLYS 61.7 % (36.0-66.0); RBC 4.11 mil/uL (4.20-5.00); RDW 14.4 % (10.5-14.5); WBC 6.1 thou/uL (4.0-11.0)
[2020-05-19 21:21] LABS: URINE BILIRUBIN 1+ (Negative); URINE BLOOD NEGATIVE (Negative); URINE CLARITY CLEAR; URINE COLOR YELLOW; URINE GLUCOSE-RANDOM* NEGATIVE (Negative); URINE KETONES 3+ (Negative); URINE LEUKOCYTES-REFLEX TRACE (Negative); URINE NITRITE-REFLEX NEGATIVE (Negative); URINE PROTEIN (DIPSTICK) NEGATIVE (Negative); URINE SPECIFIC GRAVITY 1.025 (1.005-1.035)
[2020-05-19 21:25] LABS: ICTOTEST (BILI CONFIRMATORY) Negative (Negative)
[2020-05-19 21:26] LABS: URINE REDUCING SUBSTANCE NEGATIVE
[2020-05-19 21:27] LABS: ANION GAP 17 mmol/L (7-16); BUN 12 mg/dL (7-18); CHLORIDE 98 mmol/L (98-107); CO2 19 mmol/L (21-32); CREATININE 1.2 mg/dL (0.6-1.0); GLUCOSE 75 mg/dL (74-106); POTASSIUM 3.7 mmol/L (3.5-5.1); SODIUM 134 mmol/L (136-145)
[2020-05-19 21:37] LABS: ALBUMIN 2.9 g/dL (3.4-5.0); LIPASE 228 U/L (73-393); SGOT 83 U/L (15-37); SGPT 85 U/L (30-65); TOTAL BILIRUBIN 1.5 mg/dL (0.2-1.0); TOTAL PROTEIN 8.5 g/dL (6.4-8.2); TROPONIN-I <0.06 ng/mL (<0.06)
[2020-05-20 01:41] VITALS: BP 122/86
--- NOTE | 2020-05-20 07:36 | EKG ---
[facility] [place] [address] ELECTROCARDIOGRAM REPORT Name: TRACEY SIMS Room #: [facility]#: [id number] Admission: 05/19/20 Attend Phys: Discharge: 05/20/20 Date of : 68 Report #: [id number] THIS REPORT FOR: cc: Lin Kennedy Beth RNP Santiago, Patrick MD [facility] ~ THIS REPORT FOR: //name// [facility] ED Test Date: 2020-05-19 Test Time: 21:06:23 Pat Name: TRACEY SIMS Department: Room: Gender: F Flight Test Engineer: [email or web address] : 1970 Requested By: Jed Alcaraz Order Number: [id number] MD: Clint Arora Measurements Intervals [place] Rate: 110 P: 55 MI: 157 QRS: 14 QRSD: 96 T: -35 QT: 343 QTc: 465 Interpretive Statements Sinus tachycardia Probable left atrial enlargement ST DEPRESSION, CONSIDER ISCHEMIA, ANT LEADS Baseline wander in lead(s) V4 Compared to ECG 03/29/2020 13:36:24 Sinus rhythm no longer present Electronically Signed On 05-20-2020 7:36:12 CDT by Clint Arora [email or web address] <ELECTRONICALLY SIGNED> By: Clint Arora MD, FACC 05/20/20 0736 05 05 Clint Arora MD, FAC /EPI
--- NOTE | 2020-05-20 07:37 | EKG ---
[facility] [place] [place] [address] ELECTROCARDIOGRAM REPORT Name: TRACEY SIMS Room #: [facility]#: [id number] Admission: 05/19/20 Attend Phys: Discharge: 05/20/20 Date of : 68 Report #: [id number] THIS REPORT FOR: cc: Lin Kennedy Beth RNP Santiago, Patrick MD [facility] ~ THIS REPORT FOR: //name// [facility] ED Test Date: 2020-05-19 Test Time: 21:22:37 Pat Name: TRACEY SIMS Department: Room: Gender: F Mobile Equipment Servicer: [email or web address] : 1970 Requested By: Jed Alcaraz Order Number: [id number] MD: Clint Arora Measurements Intervals [place] Rate: 109 P: 44 VT: 154 QRS: -7 QRSD: 99 T: 15 QT: 344 QTc: 464 Interpretive Statements Sinus tachycardia Probable left atrial enlargement ABNORMAL T, PROBABLE ISCHEMIA, ANTERIOR LEADS Abnormal lateral Q waves Compared to ECG 05/19/2020 21:06:23 NO SIGNIFICANT CHANGES Electronically Signed On 05-20-2020 7:37:08 CDT by Clint Arora [email or web address] <ELECTRONICALLY SIGNED> By: Clint Arora MD, FACC 05/20/20 0737 21 21 Clint Arora MD, FAC /EPI
== END 2020-05-20 01:51 | disposition home or self-care (01) ==
LOC: ER 19:50
PROVIDERS: Emergency Medicine
DX: R06.02 Shortness of breath (principal); R07.89 Other chest pain; Z20.828 Contact with and (suspected) exposure to other viral communicable diseases; Z79.899 Other long term (current) drug therapy

== ENCOUNTER 2020-06-02 15:13 | Inpatient (IN) | payer OTHER ==
[~2020-06-02] VITALS: Ht 157.5 cm; Wt 104.7 kg
--- NOTE | ~2020-06-02 | EEG ---
[facility] [place] [address] ELECTROENCEPHALOGRAM Name: TRACEY SIMS Room #: 248-P ADM IN M.R.#: [id number] Admission: 06/02/20 Attend Phys: Fahad Wilkerson MD Discharge: Date of : 68 Report #: [id number] THIS REPORT FOR: //name// CC: Lin Wilkerson DATE OF SERVICE: 06/17/2020 This patient is being evaluated for the possibility of brain . EEG was started at 7 microvolt and no cortical activity was noticed. Then, it was changed to 2 microvolt. Then, the background artifact starts showing up and is difficult to evaluate the patient for brain . Photic stimulation is unremarkable. IMPRESSION: This patient's EEG does not demonstrate any well defined cortical activity at 7 microvolts. At 2 microvolts the EEG becomes difficult to interpret because lot of artifact is present. Therefore, clinical correlation is recommended. By: [id number] [id number] Sven Cao MD /nt
--- NOTE | ~2020-06-02 | EEG ---
[facility] [place] [address] [place] [address] ELECTROENCEPHALOGRAM Name: TRACEY SIMS Room #: 245-P ADM IN M.R.#: [id number] Admission: 06/02/20 Attend Phys: Fahad Wilkerson MD Discharge: Date of : 68 Report #: [id number] THIS REPORT FOR: //name// CC: Lin Wilkerson DATE OF SERVICE: 06/14/2020 This patient's EEG is being done to evaluate the patient for encephalopathy. EEG was done by placing the electrode by standard 10-20 system of electrode placement. Both referential and sequential montages were used for recording. Background activity is very poorly formed and low voltage, sometime it looks like it goes to 5-6 Hz and 10 microvolt and on other occasions, it looks almost flat. Photic stimulation is unremarkable. IMPRESSION: This is a severely abnormal EEG consistent with encephalopathy. However, it is a nonspecific finding, which can occur with dementia, effect of psychotropic medications, etc. Clinical correlation is recommended. Some cortical activity appeared to be present, but it cannot be said with certainty that is not artifact. Clinical correlation is recommended. Thank you very much for this referral. By: 1551 1618 Sven Cao MD /nt
[2020-06-02 15:14] VITALS: BP 142/88
--- NOTE | 2020-06-02 15:25 | NUR ---
HEMACULT DONE BY DR GAONA WITH ESCORT OF NURSE
[2020-06-02 15:42] LABS: ABSOLUTE NEUTROPHILS 3.3 thou/uL (1.4-8.2); BASOPHILS 0.3 % (0.0-2.0); EOSINOPHILS 0.4 % (0.0-3.0); HEMATOCRIT 30.7 % (37.0-47.0); HEMOGLOBIN 10.5 gm/dL (12.0-15.0); LYMPHOCYTES 23.3 % (24.0-44.0); MCH 31.8 pg (26.0-34.0); MCHC 34.2 g/dL (28.0-37.0); MONOCYTES 10.6 % (1.0-8.0); PLATELET COUNT 126 thou/uL (150-400); POLYS 65.4 % (36.0-66.0); RBC 3.31 mil/uL (4.20-5.00); RDW 14.1 % (10.5-14.5)
[2020-06-02 15:57] LABS: ALBUMIN 2.7 g/dL (3.4-5.0); CALCIUM 8.6 mg/dL (8.5-10.1); CREATININE 1.1 mg/dL (0.6-1.0); TOTAL BILIRUBIN 1.1 mg/dL (0.2-1.0); TOTAL PROTEIN 6.8 g/dL (6.4-8.2)
[2020-06-02 15:58] LABS: APTT 24.1 Seconds (24.5-32.8); INR 1.4; PROTIME 14.1 Seconds (9.3-11.4)
--- NOTE | 2020-06-02 16:03 | EKG ---
[facility] [place] [address] ELECTROCARDIOGRAM REPORT Name: TRACEY SIMS Room #: [facility]..#: [id number] Admission: Attend Phys: Discharge: Date of : 68 Report #: [id number] THIS REPORT FOR: cc: Lin Kennedy Beth RNP Santiago, Patrick MD [facility] ~ THIS REPORT FOR: //name// [facility] ED Test Date: 2020-06-02 Test Time: 15:31:57 Pat Name: TRACEY SIMS Department: Room: Gender: F Necktie Centralizing Machine Operator: graham : 1970 Requested By: Jed Alcaraz Order Number: [id number] MD: Clint Arora Measurements Intervals [place] Rate: 113 P: 51 [place]: 143 QRS: -7 QRSD: 78 T: -10 QT: 370 QTc: 508 Interpretive Statements Sinus tachycardia Abnormal R-wave progression, early transition Nonspecific T abnormalities, anterior leads Borderline prolonged QT interval Compared to ECG 05/19/2020 21:22:37 Possible ischemia no longer present Q waves no longer present T-wave abnormality still present Electronically Signed On 06-02-2020 16:03:03 CDT by Clint Arora [email or web address] <ELECTRONICALLY SIGNED> By: Clint Arora MD, FACC 06/02/20 1603 1531 1531 Clint Arora MD, [facility] /EPI
[2020-06-02 16:05] LABS: POTASSIUM 2.9 mmol/L (3.5-5.1)
[2020-06-02] MEDS ORDERED: FUROSEMIDE 20 M20 M1 PO (16:33)
[2020-06-02] MEDS ORDERED: VITAMIN D21250 MC1 PO (16:37)
[2020-06-02] MEDS ORDERED: MELATONIN3 M1 PO (16:37)
[2020-06-02] MEDS ORDERED: FLONASE 0.05%50 MCG NARES (16:37)
[2020-06-02] MEDS ORDERED: NUCYNTA50 MG PO (16:39)
[2020-06-02 16:58] LABS: URINE BILIRUBIN NEGATIVE (Negative); URINE BLOOD TRACE (Negative); URINE CLARITY CLEAR; URINE COLOR YELLOW; URINE GLUCOSE-RANDOM* NEGATIVE (Negative); URINE KETONES NEGATIVE (Negative); URINE LEUKOCYTES-REFLEX 2+ (Negative); URINE NITRITE-REFLEX NEGATIVE (Negative); URINE PROTEIN (DIPSTICK) NEGATIVE (Negative)
[2020-06-02 17:07] LABS: CASTS None Seen /LPF (None Seen); SQUAMOUS 4-10 Moderate /LPF (0-3); URINE RBC 0-2 Rare /HPF (0-2); URINE WBC-REFLEX >25 Many /HPF (0-5); YEAST-REFLEX Present (None Seen)
[2020-06-02 17:08] LABS: CRYSTALS None Seen /LPF (None Seen)
[2020-06-02 18:06] VITALS: BP 142/78
[2020-06-02 18:12] VITALS: BP 142/78
[2020-06-02 18:24] VITALS: BP 151/95
[2020-06-02 18:30] VITALS: BP 136/98
--- NOTE | 2020-06-02 19:54 | NUR ---
PATIENT CAME TO FLOOR APPROX 1830, AT BEDSIDE TO ANSWER QUESTIONS. PATIENT A&OX1, HARD TO UNDERSTAND. REPORT GIVEN TO ONCOMING NURSE. IV PATENT, NO SIGNS OF DISTRESS OBSERVED.
--- NOTE | 2020-06-03 02:48 | NUR ---
Pt admitted from ED at shift change, A/O 1-2,has some expressive aphasia but able to make needs known at times. Left hemiparesis noted as well. Denies pain on assessment but frowns when moved. Pt has several lesions all over body,which she is observed picking on, pictures taken on the flesh one. Auditory hallucinations noted on and off, pt is confused. Conley patent to DD with yellow urine noted;some blood noted during conley care not sure if rectal or vaginal will continue to monitor pt. Fall precautions implemented. IVF infusing via RAC w/o any problems. Medicated with ativan for anxiety/restlessness with some relief noted. Will continue to monitor pt. Repositioned as tolorated. Pt remains NPO for now orders for ST/PT/OT written. reports pt eats puree food when she has no dentures in place which she left at home.
[2020-06-03 04:01] VITALS: BP 141/97
[2020-06-03 07:14] VITALS: BP 146/94
--- NOTE | 2020-06-03 10:38 | NUR ---
RD consult received. Admit with chronic encephalopathy, colitis, UTI. Pt bedbound with hx alcoholic cirrhosis, cva. Resides with spouse. wt stable since February and overall gain about 65 lb over [address] has assessed and pt requires puree diet, no dentures. On ivf, K being replaced. Presents at low nutrition risk with appropriate nutrition interventions in place
--- NOTE | 2020-06-03 10:55 | NUR ---
Chart reviewed and case discussed with the care team. Hot Dip Tinning Supervisor visited with the pt at bedside. Spouse not here yet this morning. Attempted to reach him via cell phone without success. Pt able to answer some questions but struggles with expressive aphasia and unintelligable speech at times. Pt is bedbound due to a CVA in 2017 with noted lt hemiparesis. She reports being cared for at home by her spouse and adult children. She requires max assist with mobility and adl's. She has a hospital bed and w/c. She reports having a caregiver/homemaker that comes in but could not tell me which agency. Her pcp is [facility] and she also sees Dr. [facility] She is being treated for delirium, UTI and colitis. 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 She does have a cell phone with her in the room. Will reattempt to f/u with her spouse regarding any HH services or dme needs she may have at [place].
[2020-06-03 13:14] LABS: HEMATOCRIT 32.3 % (37.0-47.0); HEMOGLOBIN 10.7 gm/dL (12.0-15.0); MCH 32.3 pg (26.0-34.0); MCHC 33.1 g/dL (28.0-37.0); MCV 97.7 fL (80.0-100.0); RBC 3.31 mil/uL (4.20-5.00); RDW 14.2 % (10.5-14.5); WBC 4.3 thou/uL (4.0-11.0)
[2020-06-03 13:18] LABS: CREATININE 1.1 mg/dL (0.6-1.0); MAGNESIUM 1.7 mg/dL (1.8-2.4); POTASSIUM 3.5 mmol/L (3.5-5.1)
[2020-06-03] MEDS ORDERED: NUCYNTA ER100 MG PO (13:52)
[2020-06-03] MEDS ORDERED: NUCYNTA50 MG PO (13:52)
[2020-06-03 14:04] VITALS: BP 146/94
[2020-06-03 15:11] VITALS: BP 142/99
--- NOTE | 2020-06-03 16:59 | NUR ---
[facility] SPOKE WITH LIZ IN ADM THEY CAN ACCEPT PT WILL POSS BEED SNF AT OR. [facility] REFERR[facility] TO [facility] SPOKE WITH NELSON IN ADM THEY DENIED REFERRAL DUE TO PT'S ALCOHOL ABUSE AND CIRRHOSIS. FA[facility]ED REFERRAL TO [facility] SPOKE WITH DUNG IN ADM THEY CAN ACCEPT CLINICALLY. FAXED REFERRAL TO [facility] SPOKE WITH CRISTIANE IN ADM THEY CANNOT ACCEPT DUE TP PT'S AGE THEY DO NOT ACCEPT ANYONE UNDER THE AGE OF 62.
--- NOTE | 2020-06-03 19:26 | NUR ---
Assumed pt care this am, very confused but awake. FC in place draining light yellow urine. Left sided weakness is noted. was at the bedside the whole shift, assisted in turning and feeding. diet is pureed with thin liquids. POC followed, no signs or verbalizatons of distress noted. Endorsed to the night nurse.
[2020-06-03 20:13] VITALS: BP 184/121
[2020-06-03 22:10] VITALS: BP 157/97
--- NOTE | 2020-06-04 07:22 | NUR ---
Assumed pt care at 1900. A/OX1-2,has expressive aphasia and hard to understand. VSS.Denied pain on assessment. Melatonin ordered for pt per spouse request at HS and administered with some relief noted. Pt woke up later and very restless and fidgety,medicated with ativan with some relief noted. Rapp patent to DD with yellow urine.Fall precautions in place.
[2020-06-04 08:08] VITALS: BP 151/102
[2020-06-04 08:28] VITALS: BP 145/98
[2020-06-04 08:30] LABS: HEMATOCRIT 30.6 % (37.0-47.0); HEMOGLOBIN 10.4 gm/dL (12.0-15.0); MCHC 34.1 g/dL (28.0-37.0); MCV 93.9 fL (80.0-100.0); RBC 3.26 mil/uL (4.20-5.00); RDW 14.6 % (10.5-14.5); WBC 4.3 thou/uL (4.0-11.0)
[2020-06-04 08:40] LABS: CALCIUM 7.7 mg/dL (8.5-10.1); CREATININE 0.9 mg/dL (0.6-1.0); MAGNESIUM 1.6 mg/dL (1.8-2.4); POTASSIUM 3.4 mmol/L (3.5-5.1)
--- NOTE | 2020-06-04 16:15 | NUR ---
[facility] CAN'T ACCEPT DUE TO AGE, [facility] CAN'R ACCEPT. [facility] IS ACCEPTING AND HAVE SUBMITTED FOR INSURANCE AUTH. CM ATTEMPTED TO CALL AND NOTIFY SPOUSE HE ISN'T AT BEDSIDE AT TIME OF THIS NOTE AND CALLS KEEP BEING DROPPED. CM TO CONTINUE TO CALL TO NOTIFY HIM. CLINICAL UPDATES SENT TO FACILITY FOR INSURANCE AUTH PURPOSES. CM TO FOLLOW INDICATED WITH DC PLANNING.
[2020-06-04 18:40] VITALS: BP 161/131
--- NOTE | 2020-06-04 18:55 | NUR ---
Assumed pt care this am, still confused and cannot be understood would babble words. Pt is a total care and feeder, small frequent feedings and hydration were done through out the shift. Old wounds noted on the side of both legs and chin, as per spouse pt would pick on her legs, adbised the that pt's nails need to be trimmed to avoid more wounds and infection. Q2 turns done,m POC followed with no signs or verbalizations of distress noted.
[2020-06-04 19:21] VITALS: BP 142/87
[2020-06-05 04:43] LABS: URINE BILIRUBIN NEGATIVE (Negative); URINE BLOOD NEGATIVE (Negative); URINE CLARITY CLEAR; URINE COLOR YELLOW; URINE GLUCOSE-RANDOM* NEGATIVE (Negative); URINE KETONES NEGATIVE (Negative); URINE LEUKOCYTES-REFLEX NEGATIVE (Negative); URINE NITRITE-REFLEX NEGATIVE (Negative); URINE PROTEIN (DIPSTICK) NEGATIVE (Negative); URINE SPECIFIC GRAVITY 1.025 (1.005-1.035); URINE UROBILINOGEN 0.2 E.U./dl (0.2-1.0)
[2020-06-05 06:12] LABS: HEMATOCRIT 30.2 % (37.0-47.0); HEMOGLOBIN 10.2 gm/dL (12.0-15.0); MCH 32.6 pg (26.0-34.0); MCHC 33.8 g/dL (28.0-37.0); MCV 96.6 fL (80.0-100.0); RBC 3.13 mil/uL (4.20-5.00); RDW 14.3 % (10.5-14.5)
--- NOTE | 2020-06-05 06:37 | NUR ---
VSS-AFEBRILE. LUNGS CLEAR-ROOM AIR. RESTED WELL THROUGH NIGHT WITH FEW NEEDS. INCONTINENT OF LARGE BROWN, LOOSE STOOL THIS SHIFT. TURNED, AND OFFERED ORAL CARE EVERY TWO HOURS FOR COMFORT.
[2020-06-05 06:39] LABS: CALCIUM 7.5 mg/dL (8.5-10.1); CREATININE 0.7 mg/dL (0.6-1.0); MAGNESIUM 2.1 mg/dL (1.8-2.4); POTASSIUM 3.6 mmol/L (3.5-5.1)
[2020-06-05 08:15] VITALS: BP 158/109
--- NOTE | 2020-06-05 14:56 | NUR ---
[facility] INDICATED THAT THEY HAD RECIEVED DENIAL FOR SKILLED FROM PT'S INSURANCE. SHE PROVIDED PEER TO PEER INFO FOR PHYSICIAN TO CALL. CM PROVIDED INFO TO DR. RODRIGUEZ. HE CALLED THE PEER TO PEER AND INDICATED THAT HE WAS ALSO GOING TO GET AN MRI AND CONSULT NEURO PT'S SPOUSE FEELS THAT HE IS NOTICING SOME CHANGES IN PT. HE CONVEYED THIS TO PEER TO PEER PHYSICAIN AND THEY INDICATED THAT THEY WOULD KEEP THE DENIAL AND CONTACT THEM FOR RECONSIDERATION ONCE PT IS MEDICALLY STABLE. PEER TO PEER INFO [phone] OPTION 5. CM INDICATED THAT IF CLINICAL UPDATES ARE SENT OVER WEEKEND THEY WOULDN'T BE ABLE TO UBMIT OVER THE WEEEKEND. NO WEEKEND DC ANTIPATED.
[2020-06-05 16:44] VITALS: BP 144/19
--- NOTE | 2020-06-05 19:36 | NUR ---
PT ALERT, VSS, NO PAIN. PATIENTS STATED HIS WIFES MENTAL STATUS WASNT BASELINE. SHE DIDNT RECOGNIZE HIM. DOCTOR ORDERED MRI, CIPRO AND HALDOL STOPPED. NOTICED A DIFFERENCE. MRI NOT COMPLETED D/T PATIENT HAVING PAIN TRANSMITTER IN LEFT SHOULDER. PATIENT HAD TWO IVS INFILTRATE RIGHT ARM. HAS CONSENTED TO PATIENT GETTING IV IN JUGULAR. PATIENT BED REST AND TURNED. NO SIGNS OF DISTRESS. WILL CONTINUE TO MONITOR.
[2020-06-05 19:50] VITALS: BP 142/90
--- NOTE | 2020-06-05 20:09 | NUR ---
VAT CONSULTED FOR THIS PT FOR ACCESS. 1ST PIV INFILTRATED IN RT FOREARM AFTER 3 HOURS. ATTEMPTED A NEW PIV BUT PT VERY VERY RESTLESS AND THRUSTING RT ARM ABOUT. UNABLE TO THREAD PIV. ATTEMPTED A ML ACCESS BUT WIRE WOULD NOT THREAD. PT DID NOT WANT HER EJ ACCESSED. CALLED AFTER PT APPROVED EJ ACCESS BUT WAS ABLE TO PLACE A 22G IN HER RT HAND. PT HAS A CVA WITH DEFICITS IN HER LT ARM, RUACEPHALIC COMPLETELY OCCLUDED AND PT HAS VERY VERY MINIMAL OPPORTUNIITIES FOR ANY FURTHER PIV'S.
[2020-06-06 05:53] LABS: HEMATOCRIT 30.8 % (37.0-47.0); HEMOGLOBIN 10.4 gm/dL (12.0-15.0); MCH 32.1 pg (26.0-34.0); MCHC 33.9 g/dL (28.0-37.0); MCV 94.5 fL (80.0-100.0); RBC 3.26 mil/uL (4.20-5.00); RDW 14.9 % (10.5-14.5)
[2020-06-06 06:13] LABS: CALCIUM 7.4 mg/dL (8.5-10.1); CREATININE 0.8 mg/dL (0.6-1.0); MAGNESIUM 1.8 mg/dL (1.8-2.4); POTASSIUM 3.9 mmol/L (3.5-5.1)
--- NOTE | 2020-06-06 06:22 | NUR ---
VSS-AFEBRILE. LUNGS CLEAR/DIMINISHED IN ALL GUTIERRES BILATERALLY. EASILY AROUSABLE, OCCASIONAL HAS INTELLIGIBLE WORDS. NO OBVIOUS INCREASE IN TREMORS, OR MUSCLES TWITCHING. NEW IV AT START OF SHIFT IN RIGHT FOREARM, TOLERATED WELL. TURNED AND OFFERED ORAL HYDRATION EVERY TWO HOURS. FALL PRECAUTIONS IN PLACE.
[2020-06-06 08:00] VITALS: BP 135/84
[2020-06-06 15:31] VITALS: BP 143/91
--- NOTE | 2020-06-06 18:15 | NUR ---
PT ASSESSED AT START OF SHIFT. PT AWAKE BUT NOT ABLE TO COMMUNICATE. RESTLESS AT TIMES. POOR APPETITE AND NOT TAKING MUCH PO LIQUID. TURNED Q2HRS. BATH GIVEN. HERE TWICE. TRIED TO FEED PT BUT UNSUCCESSFUL. EEG DONE- NO SEIZURE ACTIVITY NOTED. CT HEAD WILL BE DONE LATER TODAY.
[2020-06-06 20:00] VITALS: BP 106/82
--- NOTE | 2020-06-07 02:21 | NUR ---
VSS-AFEBRILE. REMAINS AROUSABLE BUT MOSTLY INCOHERENT WITH SPEECH. RESPONDS TO PAINFUL STIMULI. AWAITING CT TO CALL FOR SCAN THAT IS ORDERED. TURNED AND OFFERED ORAL HYDRATION EVERY TWO HOURS FOR COMFORT. FALL PRECAUTIONS IN PLACE.
[2020-06-07 07:52] VITALS: BP 149/96
[2020-06-07 15:09] VITALS: BP 115/97
[2020-06-07 16:08] LABS: HEMATOCRIT 36.1 % (37.0-47.0); HEMOGLOBIN 12.3 gm/dL (12.0-15.0); MCH 32.1 pg (26.0-34.0); MCV 94.4 fL (80.0-100.0); RBC 3.83 mil/uL (4.20-5.00); RDW 14.7 % (10.5-14.5); WBC 6.4 thou/uL (4.0-11.0)
[2020-06-07 16:20] LABS: CALCIUM 8.2 mg/dL (8.5-10.1); CREATININE 0.9 mg/dL (0.6-1.0); MAGNESIUM 1.6 mg/dL (1.8-2.4); POTASSIUM 3.8 mmol/L (3.5-5.1)
[2020-06-07 19:08] VITALS: BP 121/89
--- NOTE | 2020-06-07 19:42 | NUR ---
Assumed pt care this am, VS stable. Pt is still lethargic but would respond when bed bath was done and complain when iv meds were given. Pt is a feeder and would not eat any of her meals, fluids encouraged adn given to her via a syringe along with the lactulose. Pt is arousable but still incoherent, went down for a CT this am. Scheduled for a lumbar puncture tomorrow since this was scheduled as routine. FC in place, draining yellow urine. Informed MD of poor intahe, maintenance fluids started. POC followed no signs or verbalizations of distress noted.
--- NOTE | 2020-06-08 04:19 | NUR ---
VSS. NO S/S ACUTE DISTRESS NOTED OR REPORTED AT THIS TIME. WILL CONT TO MONITOR FOR ANY CHANGES IN CONDITION.
[2020-06-08 08:00] VITALS: BP 132/110
--- NOTE | 2020-06-08 11:29 | NUR ---
PT ALERT, VSS, AFEBRILE, NO APPARENT PAIN. AT BESIDE. [place] INTACT, CLR YELLOW URINE. IV RIGHT HAND, FLUIDS INFUSING. PATIENT TO RECIEVE LUMBAR PUNCTURE TODAY. PATIENT NEEDS TO BE FED NOW AND ATE 30 PERCENT OF MEAL. NO SIGNS OF DISTRESS. WILL CONTINUE TO MONITOR.
[2020-06-08 11:32] LABS: HEMATOCRIT 27.7 % (37.0-47.0); MCH 32.6 pg (26.0-34.0); MCHC 34.2 g/dL (28.0-37.0); MCV 95.1 fL (80.0-100.0); RBC 2.92 mil/uL (4.20-5.00); RDW 15.2 % (10.5-14.5)
[2020-06-08 11:43] LABS: HEMOGLOBIN 9.5 gm/dL (12.0-15.0)
[2020-06-08 11:48] LABS: CALCIUM 7.9 mg/dL (8.5-10.1); MAGNESIUM 1.5 mg/dL (1.8-2.4); POTASSIUM 3.1 mmol/L (3.5-5.1); TOTAL BILIRUBIN 1.1 mg/dL (0.2-1.0); TOTAL PROTEIN 5.8 g/dL (6.4-8.2)
[2020-06-08 12:04] LABS: APTT 31.2 Seconds (24.5-32.8); FIBRINOGEN 284.5 mg/dL (210-360); INR 1.3; PROTIME 13.6 Seconds (9.3-11.4)
--- NOTE | 2020-06-08 12:18 | NUR ---
CARE TEAM INDICATED THAT PT REMAINS ENCEPHALOPATHIC AND THAT THEY ARE CONTINUEING TO WORK PT UP. CM FOLLOWING RELATED TO DC PLANNING.
[2020-06-08 15:58] LABS: CSF CLARITY CLEAR; CSF COLOR COLORLESS; VOLUME 8 ml
[2020-06-08 16:11] LABS: CSF RBC 9 /mm3; CSF WBC 0 /mm3 (0-10)
[2020-06-08 16:18] LABS: CSF GLUCOSE 69 mg/dL (40-70); CSF PROTEIN 43 mg/dL (15-45)
[2020-06-08 16:28] LABS: MCH 32.5 pg (26.0-34.0); MCV 95.7 fL (80.0-100.0); RBC 3.77 mil/uL (4.20-5.00); RDW 15.6 % (10.5-14.5); WBC 10.4 thou/uL (4.0-11.0)
[2020-06-08 16:30] LABS: HEMOGLOBIN 12.2 gm/dL (12.0-15.0)
[2020-06-08 17:00] VITALS: BP 126/102
--- NOTE | 2020-06-08 17:16 | NUR ---
VAT CONSULTED FOR A PICC FOR THIS PT. FAILED ATTEMPT ON 06/05/20. PT WILL ALSO NEED SEDATION TO COOPERATE, LT SIDED CVA WITH RESIDUAL, SUSY VESSELS OCCULUDED AND UNABLE TO ADVANCE A WIRE. ORDER PLACED FOR IR TO PLACE LINE.
[2020-06-08 22:55] VITALS: BP 139/79
[2020-06-09 04:11] VITALS: BP 119/69
[2020-06-09 05:36] LABS: HEMATOCRIT 29.3 % (37.0-47.0); MCH 32.8 pg (26.0-34.0); MCHC 33.8 g/dL (28.0-37.0); RBC 3.02 mil/uL (4.20-5.00); RDW 15.3 % (10.5-14.5); WBC 6.3 thou/uL (4.0-11.0)
[2020-06-09 05:38] LABS: CALCIUM 7.8 mg/dL (8.5-10.1); CREATININE 1.4 mg/dL (0.6-1.0); MAGNESIUM 2.3 mg/dL (1.8-2.4); POTASSIUM 3.3 mmol/L (3.5-5.1)
[2020-06-09 05:51] LABS: HEMOGLOBIN 9.9 gm/dL (12.0-15.0)
[2020-06-09 07:10] VITALS: BP 124/74
--- NOTE | 2020-06-09 08:19 | NUR ---
progress pt alert non verbal and immobile vss, iv antibiotics as ordered took pills crushed with applesauce no difficulty swallowing. repositioned q2hrs continue poc.
--- NOTE | 2020-06-09 14:16 | NUR ---
SPOKE WITH IR ABOUT LINE PLACEMENT. PT HAD REFUSED JUGULAR PLACEMENT AND THERE ARE NO VIABLE VESSELS IN THE RT ARM, LT ARM SHE HAS RESIDUAL IMMOBILITY FROM A CVA AND THIS INCREASES HER CLOTTING RISK. PT ALSO HAS TO HAVE SEDATION FOR JUGULAR LINE TO BE PLACED SAFELY. MOST OF HER IV MEDS WERE DC'D THIS AM, RN STATED THE PT HAS A WORKING PIV, MD HAS NOT ORDERED ANY RELAXATION MEDS TO PLACE THE LINE. RN WILL CALL IF LINE STILL NEEDED AND ALL THAT IS REQUIRED IS AVAILABLE TO HAVE THE LINE PLACED.
[2020-06-09 15:25] VITALS: BP 117/77
--- NOTE | 2020-06-09 19:36 | NUR ---
Assumed pt care this am, FC in place drainnig yellow urine. Pt is none responsive very hard to arouse. Very poor oral intake food and liquids, liquids need to be given using a syringe amd medications crushed. Q2 turns done, barrier cream placed on the buttocks and scarum. NG tube placed, x- ray done and confirmed placement. Seen by talcer, 5 cans of jevity 1.5 to be given via gravity over 24 hours. PLacement of IJ ordered since PICC line placement by IR was not done, awaiting sedation orders from hospitalist since we were informed pt will not be still for procedure. POC followed. endorsed to the night nurse.
[2020-06-09 20:33] VITALS: BP 123/80
[2020-06-10] VITALS (104 sets, daily range): BP systolic 67–139; BP diastolic 36–97
[2020-06-10 02:44] LABS: BE(vivo) -26.4 mmol/L (-2 to +3); PCO2 41.7 mmHg (35.0-45.0); PO2 281.6 mmHg (80.0-100.0); sO2 99.1 % (92.0-98.0)
[2020-06-10 02:45] LABS: pH 6.842 (7.360-7.450)
--- NOTE | 2020-06-10 02:45 | NUR ---
FOUND UNRESPOSIVE WITH NO PULSE 30 MINUTES AFTER LAST ROUNDING. CODE BLUE ACTIVATED, CHEST COMPRESSIONS AND MANUAL VENTILATION STARTED IMMEDIATELY. PULSE RETURNED AFTER MANY MINUTES OF CPR, AND ADMINISTRATION OF LIFE SUPPORT MEDICATIONS. INTUBATED AND TAKEN TO ICU. NOTIFIED OF STATUS, AND IS EN ROUTE TO HOSPITAL. THIRTY MINUTES PRIOR TO START OF CODE, PATIENT WAS AROUSABLE, AND OCCASIONALLY VERBAL WITH STABLE VS.
[2020-06-10 03:12] LABS: HEMATOCRIT 28.2 % (37.0-47.0); HEMOGLOBIN 9.2 gm/dL (12.0-15.0); MCH 31.8 pg (26.0-34.0); MCHC 32.5 g/dL (28.0-37.0); MCV 97.9 fL (80.0-100.0); RBC 2.88 mil/uL (4.20-5.00); RDW 15.7 % (10.5-14.5); WBC 14.8 thou/uL (4.0-11.0)
[2020-06-10 03:19] LABS: CALCIUM 9.3 mg/dL (8.5-10.1); CREATININE 1.9 mg/dL (0.6-1.0); MAGNESIUM 2.3 mg/dL (1.8-2.4)
[2020-06-10 03:21] LABS: POTASSIUM 4.5 mmol/L (3.5-5.1)
[2020-06-10 05:07] LABS: FIBRINOGEN 309.3 mg/dL (210-360)
[2020-06-10 05:14] LABS: D-DIMER 22.28 ug/mLFEU (0.19-0.50)
[2020-06-10 06:14] LABS: ABSOLUTE NEUTROPHILS 7.9 thou/uL (1.4-8.2); BASOPHILS 0.4 % (0.0-2.0); EOSINOPHILS 0.4 % (0.0-3.0); HEMATOCRIT 28.9 % (37.0-47.0); HEMOGLOBIN 9.9 gm/dL (12.0-15.0); LYMPHOCYTES 10.4 % (24.0-44.0); MCH 32.6 pg (26.0-34.0); MCHC 34.4 g/dL (28.0-37.0); MCV 94.7 fL (80.0-100.0); MONOCYTES 7.1 % (1.0-8.0); PLATELET COUNT 102 thou/uL (150-400); POLYS 81.7 % (36.0-66.0); RBC 3.05 mil/uL (4.20-5.00); RDW 15.3 % (10.5-14.5); WBC 9.6 thou/uL (4.0-11.0)
[2020-06-10 06:29] LABS: INR 1.3; PROTIME 13.1 Seconds (9.3-11.4)
--- NOTE | 2020-06-10 06:29 | NUR ---
0230 - PT TRANSFERED TO ICU FROM 4W POST CODE BLUE. WITH PT WAS CARON LEE, EQUINE DENTIST, AND RT. PT ASSESSED PER ICU PROTOCOL, ATTACHED TO ICU MONITOR, BLOOD SUGAR: 152. PT WAS UNRESPONSIVE TO ANY STIMULI. PT CONNECTED TO VENTILATOR. LEVOPHED STARTED. HYPOTHERMIA PROTOCOL ORDERED PER CARON LEE. 0250 - DR. EPPS CALLED FOR PULM CONSULT. FULL REPORT GIVEN, INCLUDING CRITICAL ABG'S. ORDERS RECEIVED. REFER TO EMAR. 0310 - CARON LEE ORDERS HYPOTHERMIA PROTOCOL. 0357 - (KI) AND DAUGHTER IN ICU WAITING ROOM. CARON LEE SPOKE WITH FAMILY REGARDING PTS CONDITION AND CODE STATUS. FAMILY WANTED TO SEE PT BEFORE CHANGING CODE STATUS. 0405 - FAMILY AT BEDSIDE. 0425 - FAMILY DECIDED TO KEEP PT FULL CODE FOR THE TIME BEING. HYPOTHERMIA INTITIATED AT THAT TIME VIA ARTIC SUN. 0600 - PT TEMPERATURE FALLS BELOW 34 DEGREES CELCIUS. 0630 - PT REACHED GOAL TEMPERATURE OF 33 DEGREES CELCIUS.
[2020-06-10 07:39] LABS: BE(vivo) -13.8 mmol/L (-2 to +3); HCO3 11.1 mmol/L (22.0-26.0); PO2 372.1 mmHg (80.0-100.0); sO2 99.8 % (92.0-98.0)
[2020-06-10 07:40] LABS: PCO2 23.7 mmHg (35.0-45.0)
--- NOTE | 2020-06-10 07:48 | NUR ---
Pt TRANSFERRED TO ICU. WILL PLACE ON HOLD AND AWAIT NEW ORDERS TO RESUME WHEN APPROPRIATE
--- NOTE | 2020-06-10 07:49 | NUR ---
Pt TRANSFERRED TO ICU; THEREFORE, ON HOLD FOR O.T. NEED NEW ORDERS IF/WHEN APPROPRIATE.
--- NOTE | 2020-06-10 07:54 | EKG ---
[facility] [place] [address] ELECTROCARDIOGRAM REPORT Name: TRACEY SIMS Room #: 239-P ADM IN M.R.#: [id number] Admission: 06/02/20 Attend Phys: Fahad Wilkerson MD Discharge: Date of : 68 Report #: [id number] THIS REPORT FOR: cc: Lin Kennedy Beth RNP Lundgren, Craig H. MD [facility] THIS REPORT FOR: //name// [facility] Test Date: 2020-06-10 Test Time: 07:40:19 Pat Name: TRACEY SIMS Department: Room: 239 Gender: F Visually Impaired Teacher: CHAVA : 1970 Requested By: Maryann Melendrez Order Number: [id number] MD: [place] Measurements Intervals [place] Rate: 82 P: UT: QRS: 2 QRSD: 112 T: 21 QT: 445 QTc: 520 Interpretive Statements Sinus rhythm Early R wave progression Prolonged QT interval Compared to ECG 06/02/2020 15:31:[address] and T wave abnormality less pronounced Sinus tachycardia no longer present Electronically Signed On 06-10-2020 7:53:52 LUMITE INJECTOR by [place] [email or web address] <ELECTRONICALLY SIGNED> By: [place] MD, [facility] 06/10/20 0753 0740 0740 [place] MD, [facility] /EPI
--- NOTE | 2020-06-10 09:13 | NUR ---
PT HAD NG TUBE PLACED YESTERDAY RELATED TO POOR INTAKE. PT HAD BEEN TRANSFERED TO ICU. CM TO FOLLOW INDICATED WITH DC PLANNING.
--- NOTE | 2020-06-10 09:44 | NUR ---
Nutrition: Tube feeding recs as follows: Vital HP to reach 40 mL/hr with current propofol demands.
--- NOTE | 2020-06-10 09:46 | 2DMMODE ---
[facility] [place] [address] 2 D/M-MODE ECHOCARDIOGRAM Name: TRACEY SIMS Room #: 239-P ADM IN M.R.#: [id number] Admission: 06/02/20 Attend Phys: Fahad Wilkerson MD Discharge: Date of : 68 Report #: [id number] THIS REPORT FOR: cc: Lin Kennedy Beth RNP Santiago, Patrick MD [facility] ~ APPROVED REPORT Study performed: 06/10/2020 10:13:21 EXAM: Comprehensive 2D, Doppler, and color-flow Echocardiogram Patient Location: ICU Room #: 239 Status: routine BSA: 1.91 HR: 77 bpm BP: 118/76 mmHg Rhythm: NSR Other Information Study Quality: Technically Limited Technically limited study due to patient on ventilator, inability to position patient. Indications S^P Cardiopulmonary arrest Volumes Left Atrial Volume (Systole) Single Plane 4CH: 24.32 mL Single Plane 2CH: 29.59 mL LA ESV Index: 16.00 mL/m2 Aortic Valve AoV Peak Aquilino.: 0.81 m/s AO Peak Gr.: 2.61 mmHg LVOT Max P.05 mmHg LVOT Max V: 0.87 m/s Tricuspid Valve TR Peak Aquilino.: 2.30 m/s TR Peak Gr.: 21.15 mmHg PA Pressure: 21.00 mmHg Left Ventricle The left ventricle is normal size. There is normal LV segmental wall [facility] [address] [place] [address] 2 D/M-MODE ECHOCARDIOGRAM Name: TRACEY SIMS Room #: 239-P ADM IN M.R.#: [id number] Admission: 06/02/20 Attend Phys: Fahad Wilkerson MD Discharge: Date of : 68 Report #: [id number] motion. Borderline concentric left ventricular hypertrophy. The left ventricular systolic function is normal. The left ventricular ejection fraction is within the normal range. LVEF is >55%. The left ventricular diastolic function is abnormal. Right Ventricle The right ventricle is normal size. The right ventricular systolic function is normal. Atria The left atrium size is normal. The right atrium size is normal. Aortic Valve The aortic valve is normal in structure. No aortic regurgitation is present. There is no aortic valvular stenosis. Mitral Valve The mitral valve is normal in structure. Trace mitral regurgitation. No evidence of mitral valve stenosis. Tricuspid Valve The tricuspid valve is normal in structure. There is trace tricuspid regurgitation. Estimated PAP 21 mmHg plus the right atrial pressure. There is no pulmonary hypertension. Pulmonic Valve Pulmonic valve is not well visualized. Great Vessels The aortic root is normal in size. IVC is not well visualized. Pericardium There is no pericardial effusion. <Conclusion> Normal left ventricle size with borderline concentric hypertrophy EF 55-60%, no obvious segmental wall motion abnormality. Normal right ventricular size and function Normal right/left atrial size Normal aortic and mitral valve structure and function Trace tricuspid valve insufficiency [facility] [address] [place] [address] 2 D/M-MODE ECHOCARDIOGRAM Name: TRACEY SIMS Room #: 239-P ADM IN M.R.#: [id number] Admission: 06/02/20 Attend Phys: Fahad Wilkerson MD Discharge: Date of : 68 Report #: [id number] Pulmonary artery systolic pressure estimated at 21 mmHg No pericardial effusion <ELECTRONICALLY SIGNED> By: Clint Arora MD, FACC 06/10/2045 4 4 Clint Arora MD, FACC /INF
[2020-06-10 10:02] LABS: ANION GAP 20 mmol/L (7-16); BUN 10 mg/dL (7-18); CALCIUM 9.4 mg/dL (8.5-10.1); CHLORIDE 116 mmol/L (98-107); CO2 12 mmol/L (21-32); CREATININE 1.8 mg/dL (0.6-1.0); GLUCOSE 141 mg/dL (74-106); MAGNESIUM 2.8 mg/dL (1.8-2.4); PHOSPHORUS 4.3 mg/dL (2.5-4.9); SODIUM 148 mmol/L (136-145); TROPONIN-I <0.06 ng/mL (<0.06)
[2020-06-10 10:05] LABS: POTASSIUM 3.3 mmol/L (3.5-5.1)
[2020-06-10 14:25] LABS: EOSINOPHILS 0.1 % (0.0-3.0)
[2020-06-10 14:27] LABS: ABSOLUTE NEUTROPHILS 3.6 thou/uL (1.4-8.2); BASOPHILS 0.1 % (0.0-2.0); HEMATOCRIT 22.4 % (37.0-47.0); HEMOGLOBIN 8.2 gm/dL (12.0-15.0); LYMPHOCYTES 17.9 % (24.0-44.0); MCH 34.1 pg (26.0-34.0); MCHC 36.6 g/dL (28.0-37.0); MCV 93.4 fL (80.0-100.0); MONOCYTES 5.1 % (1.0-8.0); POLYS 76.8 % (36.0-66.0); RDW 14.6 % (10.5-14.5); WBC 4.7 thou/uL (4.0-11.0)
--- NOTE | 2020-06-10 14:29 | NUR ---
CONSULTED TO PLACE A CENTRAL LINE FOR THIS PATIENT. MIDLINE ATTEMPTED 5 DAYS AGO WAS UNSUCCESSFUL, UPPER ARM VEINS NOT COMPATABLE WITH PICC PLACEMENT. THE RIGHT JUGULAR WAS WIDLEY PATENT. A #6F TRIPLE LUMEN CENTRAL LINE WAS PLACED PER HOSPITAL POLICY AFTER A BEDSIDE TIMEOUT WAS COMPLETED. THE 25CM LINE WAS ADVANCED TO 4CM EXTERNAL. A STAT CHEST XRAY WAS ORDERED FOR CONFIRMATION
[2020-06-10 15:09] LABS: CALCIUM 8.2 mg/dL (8.5-10.1); CREATININE 1.6 mg/dL (0.6-1.0); MAGNESIUM 2.8 mg/dL (1.8-2.4); PHOSPHORUS 1.9 mg/dL (2.5-4.9)
[2020-06-10 15:11] LABS: APTT 27.8 Seconds (24.5-32.8); INR 1.4; PROTIME 13.9 Seconds (9.3-11.4)
[2020-06-10 15:15] LABS: POTASSIUM 2.6 mmol/L (3.5-5.1)
--- NOTE | 2020-06-10 15:51 | NUR ---
[id number]: PATIENT'S VISITED THE PATIENT IN THE ROOM AND HE WAS UPDATED AND EDUCATED ON PATIENT CONDITION AND PLAN OF CARE.
[2020-06-10 16:12] LABS: PLATELET COUNT 46 thou/uL (150-400)
[2020-06-10 17:47] LABS: BE(vivo) -6.9 mmol/L (-2 to +3); HCO3 16.3 mmol/L (22.0-26.0); sO2 99.6 % (92.0-98.0)
[2020-06-10 17:48] LABS: PCO2 24.6 mmHg (35.0-45.0)
[2020-06-10 19:12] LABS: EOSINOPHILS 0.3 % (0.0-3.0); MCH 32.4 pg (26.0-34.0); RBC 2.36 mil/uL (4.20-5.00); WBC 4.5 thou/uL (4.0-11.0)
[2020-06-10 19:14] LABS: BASOPHILS 0.4 % (0.0-2.0); HEMOGLOBIN 7.7 gm/dL (12.0-15.0); LYMPHOCYTES 22.7 % (24.0-44.0); MCHC 34.9 g/dL (28.0-37.0); MONOCYTES 9.2 % (1.0-8.0); POLYS 67.4 % (36.0-66.0); RDW 14.8 % (10.5-14.5)
[2020-06-10 19:29] LABS: APTT 29.7 Seconds (24.5-32.8); INR 1.4; PROTIME 14.7 Seconds (9.3-11.4)
--- NOTE | 2020-06-10 19:38 | NUR ---
BEDSIDE SHIFT REPORT RECEIVED, CARE ASSUMED. PT CONTINUES ON HYPOTHERMIA PROTOCOL. POTASSIUM LEVEL 2.6, DR EPPS NOTIFIED. SEE NEW ORDERS.
[2020-06-10 19:48] LABS: PLATELET COUNT 44 thou/uL (150-400)
[2020-06-10 23:31] LABS: MAGNESIUM 2.3 mg/dL (1.8-2.4)
[2020-06-10 23:38] LABS: POTASSIUM 2.8 mmol/L (3.5-5.1)
[2020-06-11] VITALS (103 sets, daily range): BP systolic 81–135; BP diastolic 44–81
[2020-06-11 02:21] LABS: ABSOLUTE NEUTROPHILS 2.3 thou/uL (1.4-8.2); BASOPHILS 0.3 % (0.0-2.0); EOSINOPHILS 0.5 % (0.0-3.0); HEMOGLOBIN 7.1 gm/dL (12.0-15.0); WBC 3.8 thou/uL (4.0-11.0)
[2020-06-11 02:23] LABS: HEMATOCRIT 20.3 % (37.0-47.0); LYMPHOCYTES 30.9 % (24.0-44.0); MCH 32.3 pg (26.0-34.0); MCHC 35.1 g/dL (28.0-37.0); MCV 92.1 fL (80.0-100.0); MONOCYTES 7.3 % (1.0-8.0); PLATELET COUNT 39 thou/uL (150-400); RDW 15.1 % (10.5-14.5)
[2020-06-11 02:24] LABS: APTT 30.2 Seconds (24.5-32.8); INR 1.4; PROTIME 14.5 Seconds (9.3-11.4)
[2020-06-11 02:48] LABS: CALCIUM 7.6 mg/dL (8.5-10.1); CREATININE 1.3 mg/dL (0.6-1.0); MAGNESIUM 2.3 mg/dL (1.8-2.4)
[2020-06-11 05:18] LABS: CALCIUM 7.9 mg/dL (8.5-10.1); CREATININE 1.2 mg/dL (0.6-1.0); MAGNESIUM 2.1 mg/dL (1.8-2.4); POTASSIUM 3.3 mmol/L (3.5-5.1)
[2020-06-11 05:21] LABS: MCH 32.7 pg (26.0-34.0); MCHC 35.6 g/dL (28.0-37.0); MCV 91.6 fL (80.0-100.0); RBC 2.14 mil/uL (4.20-5.00); RDW 15.1 % (10.5-14.5); WBC 3.7 thou/uL (4.0-11.0)
[2020-06-11 05:36] LABS: HEMATOCRIT 19.6 % (37.0-47.0)
--- NOTE | 2020-06-11 07:39 | EKG ---
[facility] [place] [address] ELECTROCARDIOGRAM REPORT Name: TRACEY SIMS Room #: 239-P ADM IN M.R.#: [id number] Admission: 06/02/20 Attend Phys: Fahad Wilkerson MD Discharge: Date of : 68 Report #: [id number] THIS REPORT FOR: cc: Lin Kennedy Beth RNP Santiago, Patrick MD [facility] ~ THIS REPORT FOR: //name// [facility] Test Date: 2020-06-11 Test Time: 07:16:01 Pat Name: TRACEY SIMS Department: Room: 239 Gender: F Clinical Staff Pharmacist: CHAVA : 1970 Requested By: [place] Order Number: [id number] MD: Clint Arora Measurements Intervals [place] Rate: 65 P: 45 SC: 124 QRS: 20 QRSD: 121 T: -5 QT: 502 QTc: 523 Interpretive Statements Sinus rhythm Nonspecific intraventricular conduction delay Borderline T abnormalities, inferior leads Compared to ECG 06/10/2020 07:40:19 Intraventricular conduction delay now present T-wave abnormality now present Poor R-wave progression no longer present Prolonged QT interval no longer present Electronically Signed On 06-11-2020 7:39:11 CREELER by Clint Arora [email or web address] <ELECTRONICALLY SIGNED> By: Clint Arora MD, FACC 06/11/2039 5 5 Clint Arora MD, [facility] /EPI
[2020-06-11 09:31] LABS: BE(vivo) -4.1 mmol/L (-2 to +3); HCO3 19.8 mmol/L (22.0-26.0); PCO2 31.6 mmHg (35.0-45.0); PO2 123.7 mmHg (80.0-100.0); pH 7.415 (7.360-7.450); sO2 98.5 % (92.0-98.0)
[2020-06-11 16:06] LABS: HSV 1 DNA Negative (Negative); HSV 2 DNA Negative (Negative)
--- NOTE | 2020-06-11 18:48 | NUR ---
ASSUMED CARE OF PATIENT AT 0700. PATIENT STILL ON THE WARMING PROTOCAL. PATIENTS DAUGHTER AT BEDSIDE AT 0900. ALL QUESTIONS ANSWERED PER THE PLAN OF CARE. DR. EPPS AT BEDSIDE, NO NEW ORDERS.
--- NOTE | 2020-06-11 19:03 | NUR ---
ASSUMED CARE OF PATIENT AT 0700. PATIENT STILL ON RE WARMING PROTOCAL. DAUGHTER AT BEDSIDE AT 0900. ANSWERED ALL QUESTIONS PER PLAN OF CARE. DR. EPPS AT BEDSIDE, NO NEW ORDERS. DR. EPPS CONTACTED AT 1550 REGARDING PATIENTS LOW URINE OUTPUT. ORDERS FOR ALBUMIN AND LASIXS WERE GIVEN. ASSESSMENTS AND INTERVENTIONS DOCUMENTED. PATIENT NOT PROGRESSING TOWARDS HER GOALS EVIDENCED BY STILL BEING INTUBATED AND REQUIRING LEVO.
--- NOTE | 2020-06-11 22:11 | NUR ---
>>>1900 Bedside shift report received. Care assumed. >>>2009 assessments done as documented, pt continues on hypothermia protocol. No pain or discomfort noted. Will continue to monitor.
[2020-06-11 23:53] LABS: POTASSIUM 3.4 mmol/L (3.5-5.1)
[2020-06-12] VITALS (98 sets, daily range): BP systolic 71–150; BP diastolic 37–96
[2020-06-12 04:39] LABS: HEMATOCRIT 26.7 % (37.0-47.0); MCH 31.1 pg (26.0-34.0); MCHC 34.7 g/dL (28.0-37.0); MCV 89.6 fL (80.0-100.0); RBC 2.99 mil/uL (4.20-5.00); RDW 15.6 % (10.5-14.5); WBC 12.5 thou/uL (4.0-11.0)
[2020-06-12 04:53] LABS: HEMOGLOBIN 9.3 gm/dL (12.0-15.0)
[2020-06-12 04:57] LABS: CALCIUM 7.9 mg/dL (8.5-10.1); CREATININE 1.3 mg/dL (0.6-1.0); MAGNESIUM 1.7 mg/dL (1.8-2.4); POTASSIUM 3.6 mmol/L (3.5-5.1)
--- NOTE | 2020-06-12 07:00 | NUR ---
ASSUMMED CARE OF PATIENT FROM THE NIGHT NURSERICHIE.
[2020-06-12 07:35] LABS: BE(vivo) -3.4 mmol/L (-2 to +3); PCO2 35.1 mmHg (35.0-45.0); PO2 115.3 mmHg (80.0-100.0); pH 7.394 (7.360-7.450); sO2 98.2 % (92.0-98.0)
--- NOTE | 2020-06-12 07:50 | NUR ---
PATIENT PLACED ON CPAP TRIAL EARLIER AND DID NOT INITIATE ANY RESPIRATORY EFFORT. ON PROPOFOL, APNEA TRIAL BY RT WITH DR JARAMILLO AT THE BEDSIDE. VERY SHALLLOW, RAPID ABD BREATHING NOTED, MONITOR ST AND TRIAL DC'D.
--- NOTE | 2020-06-12 10:55 | NUR ---
SPOKE WITH PATIENT'S DAUGHTER KATERYNA, UPDATED ON PATIENT'S STATUS. REASSUANCE GIVEN.
--- NOTE | 2020-06-12 11:00 | NUR ---
PROPOFOL TURNED OFF AT 1000. PATIENT NOW HAS EYES SL OPEN, CORNEAL REFLEX INTACT, WILL NOT TRACT OR FOLLOW COMMANDS, ST POSTURING WITH SUCTIONING AND WEAK COUGH RELEX NOTED. PROPOFOL RESUMED AT 10 MCG. LEVOPHED DRIP TAPPERED MEAN ARTERIAL PRESSURE IS GREATER THAN 65 MMHG
--- NOTE | 2020-06-12 11:49 | NUR ---
ALON FROM [facility] HERE, UPDATED ON PATIENT STATUS, NOZZLE WORKER FROM [facility] WILL RETURN MONDAY TO EVALUATE.
--- NOTE | 2020-06-12 14:05 | NUR ---
chart review. unable to visit with ashley rt medical condition, she remains on vent. cm called spouse jeni, no answer, left message, requesting call back if has case management needs. no anticipated dc over the weekend. will cont following as needed for dc needs.
--- NOTE | 2020-06-12 19:00 | NUR ---
PATIENT REMAINS CRITICAL BUT STABLE. LEVOPHED WEANED OFF, SEDATION LOWERED, WILL OPEN EYES WHEN SUCTIONED, COUGH AND CORNEAL REFLEXES INTACT, WILL OPEN OR CLINCH MOUTH CLOSED FOR ORAL CARE. URINE OUTPUT MARGINAL. MEAN ARTERIAL PRESSURE GREATER THAN 65 MMHG.
[2020-06-13] VITALS (87 sets, daily range): BP systolic 85–143; BP diastolic 52–97
--- NOTE | 2020-06-13 00:09 | NUR ---
ALL SEDATION OFF FROM 3782-0049. PT DOES MOVE HEAD SLIGHTLY WITH ORAL CARES, PUPILS ARE REACTIVE AND EQUAL. WHEN INTRODUCING NOXIOUS STIMULI TO PT EYES, DOES NOT APPEAR TO BLINK. WITH PAINFUL STIMULI TO LIMBS, PATIENT TURNS ARMS IN TOWARD BODY, DOES NOT PULL AWAY. BECOMING TACHYCARDIC UP TO 125BPM, DOES NOT APPEAR TO BREATHE OVER VENT. NOT PROGRESSING TOWARD GOALS
[2020-06-13 04:37] LABS: CALCIUM 7.6 mg/dL (8.5-10.1); CREATININE 1.3 mg/dL (0.6-1.0); POTASSIUM 3.2 mmol/L (3.5-5.1)
[2020-06-13 04:49] LABS: HEMATOCRIT 23.7 % (37.0-47.0); HEMOGLOBIN 8.2 gm/dL (12.0-15.0); MCHC 34.7 g/dL (28.0-37.0)
[2020-06-13 04:51] LABS: MCH 31.5 pg (26.0-34.0); MCV 90.7 fL (80.0-100.0); RBC 2.61 mil/uL (4.20-5.00)
--- NOTE | 2020-06-13 10:47 | NUR ---
MTN NOTIFIED ABOUT PT CURRENT SITUATION. MTN WANTS TO BE NOTIFIED OF ANY FURTHER CHANGES. MTN WANTS TO BE CALLED BEFORE EXTUBATION IN FUTURE.
--- NOTE | 2020-06-13 14:05 | NUR ---
KI INFORMED ABOUT PT TRANSFER TO ICU POD 2 ROOM 245.
[2020-06-14] VITALS (60 sets, daily range): BP systolic 91–129; BP diastolic 62–92
[2020-06-14 04:08] LABS: BE(vivo) -1.3 mmol/L (-2 to +3); HCO3 21.5 mmol/L (22.0-26.0); PCO2 28.3 mmHg (35.0-45.0); PO2 86.6 mmHg (80.0-100.0); pH 7.498 (7.360-7.450); sO2 97.4 % (92.0-98.0)
--- NOTE | 2020-06-14 04:09 | NUR ---
This RN spoke to [facility] representive regarding patient status, labs, and trends. Wants to be notified if any comfort care plans change, neuro status changes or cardiac .
--- NOTE | 2020-06-14 04:24 | NUR ---
During this RNs 0400 assessment. Patients pupils appear much larger and are not responding to light. This RN paged Dr. Cao and spoke to the semiconductor packages sealer physician Dr. Moon. Per Dr's request no immediate action be taken, physician to round in the morning and decide what further actions be done. Not urgent in that family is considering going comfort care soon. Patient has slight withdraw to pain on bilateral upper extremities but not lower. Will continue to monitor.
[2020-06-14 04:53] LABS: HEMOGLOBIN 6.8 gm/dL (12.0-15.0)
[2020-06-14 04:55] LABS: MCH 32.1 pg (26.0-34.0); MCHC 35.4 g/dL (28.0-37.0); MCV 90.6 fL (80.0-100.0); RBC 2.1 mil/uL (4.20-5.00); RDW 15.8 % (10.5-14.5); WBC 4.6 thou/uL (4.0-11.0)
[2020-06-14 04:58] LABS: CALCIUM 7.4 mg/dL (8.5-10.1); CREATININE 1.1 mg/dL (0.6-1.0); POTASSIUM 3.2 mmol/L (3.5-5.1)
[2020-06-14 05:01] LABS: HEMATOCRIT 19.1 % (37.0-47.0)
[2020-06-14 10:04] LABS: BE(vivo) -1.3 mmol/L (-2 to +3); HCO3 21.2 mmol/L (22.0-26.0); PCO2 26.9 mmHg (35.0-45.0); PO2 421.9 mmHg (80.0-100.0); pH 7.515 (7.360-7.450); sO2 99.9 % (92.0-98.0)
[2020-06-14 10:22] LABS: BE(vivo) -2.4 mmol/L (-2 to +3); HCO3 23.9 mmol/L (22.0-26.0); PCO2 49.2 mmHg (35.0-45.0); PO2 194.7 mmHg (80.0-100.0); pH 7.305 (7.360-7.450); sO2 99.2 % (92.0-98.0)
--- NOTE | 2020-06-14 12:43 | HC ---
[facility] [place] [address] CONSULTATION Name: TRACEY SIMS Room #: 245-P ADM IN M.R.#: [id number] Admission: 06/02/20 Attend Phys: Faahd Wilkerson MD Discharge: Date of : 68 Report #: [id number] THIS REPORT FOR: cc: Lin Kennedy Beth RNP Khosla, Parveen K. MD ~ DATE OF SERVICE: 06/05/2020 HISTORY OF PRESENT ILLNESS: This is a 49-year-old female patient who is not able to provide any history at all. The patient is confused. She says something which does not make any sense. The patient's is there. He indicates that this patient had an intracerebral hemorrhage in 2017. When I asked him what the cause was and he indicates that she used to drink alcohol heavily and she has cirrhosis of the liver. Whatever history I can get from him, it would appear that because of the liver failure, her protime went up and she had a bleed into the brain. She was comatose for a long period of time. She had multiple seizures during that coma. She was put on two medications for that. Her neurologist took her off one of the medications. The does not know what medication was taken off, but he knows that this patient was left with Keppra, which she still takes. She had further complication. She had a stimulator put in for the back or at least had some instrumentation of the back, which got infected and she got IV antibiotics for a long time. She has been on Zoloft for a long time for the depression, they have tried to change it to Lexapro and she started hallucinating and then they gave her Haldol. Now, she is admitted with urinary tract infection. REVIEW OF SYSTEMS: Indicates that she had a craniotomy in the past because of intracerebral bleed. She also has a spine instrumentation for the pain, I do not know what exactly it was, and that caused infection. All of it was some time ago. She is being followed by ID for infection. This was her relevant 14-point review of system. PAST MEDICAL HISTORY: Positive for the fact that she had an intracerebral bleeds. 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 PAST MEDICAL HISTORY: Positive for intracerebral bleed and seizure. FAMILY HISTORY: Unremarkable. [facility] [address] [place] [address] CONSULTATION Name: TRACEY SIMS Room #: 245-P [facility].#: [id number] Admission: 06/02/20 Attend Phys: Fahad Wilkerson MD Discharge: Date of : 68 Report #: [id number] SOCIAL HISTORY: She used to drink very heavily and that led to cirrhosis and possibly the bleed as I understand from the . PHYSICAL EXAMINATION: Pretty limited. She talks completely irrelevantly. Her words are not formed. She does not follow simple commands to do the cranial nerve examination. She is hemiplegic on the left side. Rest of the neurological examination is not possible in this patient. Dr. Curtis has as ordered an MRI and CT. CT was done, which showed chronic changes, but no acute changes. MRI is not done yet. IMPRESSION: This patient most likely has encephalopathy. She does have a prior history of seizure. We will get an EEG to make sure she does not have any subclinical seizure. Otherwise, main management is going to be management and evaluation by ID as well as by Psychiatry which I will recommend to adjust her medication. After the MRI, spinal tap can be considered if ID do not find any source of infection systemically, but neurologically, I do not think we will be able to do much, but I will look at the MRI once it is done. All of it was discussed with the patient's . More than 50 minutes of time was spent taking care of this patient today and majority was spent counseling and coordinating including review of her extensive workup. Thank you very much for this referral. <ELECTRONICALLY SIGNED> By: Sven Cao MD 06/14/20 1243 1825 0026 Sven Cao MD /nt
--- NOTE | 2020-06-14 12:44 | EEG ---
[facility] [place] [address] ELECTROENCEPHALOGRAM Name: TRACEY SIMS Room #: 245-P ADM IN M.R.#: [id number] Admission: 06/02/20 Attend Phys: Fahad Wilkerson MD Discharge: Date of : 68 Report #: [id number] THIS REPORT FOR: //name// CC: Lin Wilkerson DATE OF SERVICE: 06/06/2020 This patient is being evaluated for altered mental status. EEG was done by placing the electrode by standard 10-20 system of electrode placement. Both referential and sequential montages were used for recording. Background activity in this patient's EEG is about 7 Hz and 10 microvolts. A lot of artifact is present. Because of this artifact, it is very difficult to tell if the EEG is symmetrical or not. Photic stimulation is unremarkable. Throughout the record, no active epileptiform activity was noticed. IMPRESSION: This is an abnormal EEG because it is disorganized, poorly formed and low voltage. No active epileptiform activity was noticed during this record. Thank you very much for this referral. <ELECTRONICALLY SIGNED> By: Sven Cao MD 06/14/20 1244 1318 1326 Sven Cao MD /nt
[2020-06-14 15:31] LABS: ABSOLUTE NEUTROPHILS 3.7 thou/uL (1.4-8.2); EOSINOPHILS 1.1 % (0.0-3.0); HEMOGLOBIN 8.5 gm/dL (12.0-15.0); PLATELET COUNT 39 thou/uL (150-400)
[2020-06-14 15:32] LABS: BASOPHILS 0.9 % (0.0-2.0); HEMATOCRIT 24.3 % (37.0-47.0); LYMPHOCYTES 22.6 % (24.0-44.0); MCH 31.5 pg (26.0-34.0); MCV 89.9 fL (80.0-100.0); MONOCYTES 9.9 % (1.0-8.0); POLYS 65.5 % (36.0-66.0); RDW 16.1 % (10.5-14.5); WBC 5.7 thou/uL (4.0-11.0)
[2020-06-14 15:45] LABS: ALBUMIN 1.6 g/dL (3.4-5.0); CALCIUM 7.5 mg/dL (8.5-10.1); CREATININE 1.1 mg/dL (0.6-1.0); POTASSIUM 3.2 mmol/L (3.5-5.1); TOTAL BILIRUBIN 1.4 mg/dL (0.2-1.0); TOTAL PROTEIN 5.1 g/dL (6.4-8.2)
--- NOTE | 2020-06-14 18:23 | NUR ---
ASSUMED CARE OF PT AT 0700, PT IS A GCS OF 3. PUPILS ARE DIALATED AND FIXED AT A 5. NOTED TO HAVE ABSENCE OF GAG, COUGH AND CORNEAL RELFLEXES. APNEA TEST PERFORMED AND PT WAS A POSITIVE. DR EPPS AND NEUROLOGOST NOTIFIED. EEG PERFORMED ON PT. FAMILY NOTIFIED OF PT CONDITION. DISCUSSION ON FAMILY MEETING FOR MONDAY [place]. PT RESTING WITH EYES CLOSED AT THIS TIME. PT HAS BEEN FEBRILE.
[2020-06-15] VITALS (47 sets, daily range): BP systolic 80–159; BP diastolic 46–99
[2020-06-15 00:03] LABS: URINE BILIRUBIN NEGATIVE (Negative); URINE BLOOD 3+ (Negative); URINE CLARITY CLEAR; URINE COLOR YELLOW; URINE GLUCOSE-RANDOM* NEGATIVE (Negative); URINE KETONES NEGATIVE (Negative); URINE NITRITE-REFLEX NEGATIVE (Negative); URINE PROTEIN (DIPSTICK) NEGATIVE (Negative); URINE SPECIFIC GRAVITY <= 1.005 (1.005-1.035); URINE UROBILINOGEN 0.2 E.U./dl (0.2-1.0)
[2020-06-15 00:06] LABS: URINE LEUKOCYTES-REFLEX 1+ (Negative)
[2020-06-15 00:35] LABS: BACTERIA-REFLEX None Seen /HPF (None Seen); CASTS None Seen /LPF (None Seen); CRYSTALS None Seen /LPF (None Seen); MUCUS 0-3 Light strn/LPF (None Seen); SQUAMOUS None Seen /LPF (0-3); URINE RBC None Seen /HPF (0-2); URINE WBC-REFLEX 0-5 Rare /HPF (0-5)
[2020-06-15 00:36] LABS: YEAST-REFLEX Present (None Seen)
--- NOTE | 2020-06-15 04:56 | NUR ---
This RN spoke with MTN around 0345 this morning to discuss patient status. Updated on labs, medications and physical assessments. [facility]N labor representative to assess patient at 0900 this morning. Call MTN with further decisions or change in condition.
[2020-06-15 06:27] LABS: HEMOGLOBIN 8.1 gm/dL (12.0-15.0); MCHC 34.7 g/dL (28.0-37.0)
[2020-06-15 06:29] LABS: HEMATOCRIT 23.4 % (37.0-47.0); MCH 31.6 pg (26.0-34.0); MCV 91.1 fL (80.0-100.0); RBC 2.57 mil/uL (4.20-5.00); RDW 16.4 % (10.5-14.5); WBC 5.4 thou/uL (4.0-11.0)
[2020-06-15 06:37] LABS: CALCIUM 7.5 mg/dL (8.5-10.1); CREATININE 1.1 mg/dL (0.6-1.0); POTASSIUM 3.2 mmol/L (3.5-5.1)
[2020-06-15 13:26] LABS: HSV PCR SOURCE CSF
--- NOTE | 2020-06-15 17:27 | NUR ---
ASSUMED CARE OF PT 0645. PLAN FOR DR SCHULTE TO MEET WITH FAMILY AT 1700. DR MEYERS STATES THERE IS SOME ACTIVITY ON EEG BUT NOT MUCH. HE STATES PT'S QUALITY OF LIFE WAS NOT GREAT BEFORE THIS HOSPITALIZATION. HE WILL CALL OR CAN COME WHEN FAMILY IS HERE FOR MEETING. REPLACE KCL. KEPT ON BILLY HUGGER DUE TO LOW BODY TEMP. MTN FOLLOWING, CALL WITH ANY CHANGES IN STATUS.
[2020-06-16] VITALS (43 sets, daily range): BP systolic 104–153; BP diastolic 60–96
[2020-06-16 05:16] LABS: MCH 31.7 pg (26.0-34.0); RBC 2.57 mil/uL (4.20-5.00); WBC 6.6 thou/uL (4.0-11.0)
[2020-06-16 05:18] LABS: HEMATOCRIT 23.6 % (37.0-47.0); HEMOGLOBIN 8.2 gm/dL (12.0-15.0); MCHC 34.6 g/dL (28.0-37.0); MCV 91.6 fL (80.0-100.0)
[2020-06-16 05:31] LABS: CALCIUM 7.7 mg/dL (8.5-10.1); CREATININE 1.2 mg/dL (0.6-1.0); POTASSIUM 3.4 mmol/L (3.5-5.1)
--- NOTE | 2020-06-16 18:44 | NUR ---
PT GLO AND DR. JARAMILLO HAD A MEETING. PT GLO, SHASHI AND DR. SCHULTE HAD A MEETING. PLAN TO DECLARE PT TOMORROW AT 10AM.
[2020-06-17] VITALS (47 sets, daily range): BP systolic 84–166; BP diastolic 45–95
[2020-06-17 00:28] LABS: URINE BILIRUBIN NEGATIVE (Negative); URINE BLOOD NEGATIVE (Negative); URINE CLARITY SL CLOUDY; URINE COLOR YELLOW; URINE GLUCOSE-RANDOM* NEGATIVE (Negative); URINE KETONES NEGATIVE (Negative); URINE NITRITE-REFLEX NEGATIVE (Negative); URINE PROTEIN (DIPSTICK) NEGATIVE (Negative); URINE SPECIFIC GRAVITY <= 1.005 (1.005-1.035); URINE UROBILINOGEN 0.2 E.U./dl (0.2-1.0)
[2020-06-17 00:41] LABS: URINE LEUKOCYTES-REFLEX 3+ (Negative)
[2020-06-17 00:42] LABS: CASTS None Seen /LPF (None Seen); CRYSTALS None Seen /LPF (None Seen); MUCUS 0-3 Light strn/LPF (None Seen); SQUAMOUS 4-10 Moderate /LPF (0-3); TRANSITIONAL EPITHEL CELL 0-3 Few /LPF (None Seen); URINE RBC 3-10 Few /HPF (0-2)
[2020-06-17 00:52] LABS: HEMOGLOBIN 8.2 gm/dL (12.0-15.0); MCHC 34.2 g/dL (28.0-37.0); RBC 2.61 mil/uL (4.20-5.00); WBC 7.9 thou/uL (4.0-11.0)
[2020-06-17 00:54] LABS: ABSOLUTE NEUTROPHILS 5.3 thou/uL (1.4-8.2); BASOPHILS 0.3 % (0.0-2.0); EOSINOPHILS 1.9 % (0.0-3.0); HEMATOCRIT 23.9 % (37.0-47.0); LYMPHOCYTES 24.4 % (24.0-44.0); MCH 31.3 pg (26.0-34.0); MCV 91.6 fL (80.0-100.0); MONOCYTES 6.3 % (1.0-8.0); PLATELET COUNT 29 thou/uL (150-400); POLYS 67.1 % (36.0-66.0); RDW 17.6 % (10.5-14.5)
[2020-06-17 01:16] LABS: ALBUMIN 1.3 g/dL (3.4-5.0); CALCIUM 7.5 mg/dL (8.5-10.1); CREATININE 1.3 mg/dL (0.6-1.0); DIRECT BILIRUBIN 0.7 mg/dL (<0.1-0.2); TOTAL BILIRUBIN 1.2 mg/dL (0.2-1.0); TOTAL PROTEIN 5.1 g/dL (6.4-8.2); TROPONIN-I 0.07 ng/mL (<0.06)
[2020-06-17 01:17] LABS: APTT 32.7 Seconds (24.5-32.8); FIBRINOGEN 405.1 mg/dL (210-360); INR 1.4; PROTIME 14.1 Seconds (9.3-11.4)
[2020-06-17 02:59] LABS: BE(vivo) 4.6 mmol/L (-2 to +3); HCO3 28.4 mmol/L (22.0-26.0); PCO2 38.6 mmHg (35.0-45.0); PO2 103.8 mmHg (80.0-100.0); pH 7.484 (7.360-7.450); sO2 98.1 % (92.0-98.0)
--- NOTE | 2020-06-17 04:41 | NUR ---
ASSUMED PT CARE AT 1900.VSS. PT DOESNT FOLLOW COMMANDS, DOES NOT OPENS EYES. HOWEVER PT WILL SLIGHTLY RESPOND TO PAIN ON HER RIGHT; SHE FLEXES HER INDEX AND THUM FINGER AND SLIGHTLY ROTATES HER RIGHT HAND OUTWARD. PT IS OTHERWISE STABLE. ASSESSMENTS ARE CHARTED, WILL CCONTINUE TO MONITOR
[2020-06-17 07:41] LABS: ABSOLUTE NEUTROPHILS 5.4 thou/uL (1.4-8.2); RBC 2.51 mil/uL (4.20-5.00)
[2020-06-17 07:43] LABS: BASOPHILS 0.4 % (0.0-2.0); EOSINOPHILS 1.8 % (0.0-3.0); LYMPHOCYTES 25.9 % (24.0-44.0); MCH 31.8 pg (26.0-34.0); MCHC 34.7 g/dL (28.0-37.0); MCV 91.7 fL (80.0-100.0); MONOCYTES 5.8 % (1.0-8.0); POLYS 66.1 % (36.0-66.0); RDW 17.5 % (10.5-14.5); WBC 8.2 thou/uL (4.0-11.0)
[2020-06-17 07:53] LABS: APTT 33.4 Seconds (24.5-32.8); FIBRINOGEN 298.9 mg/dL (210-360); INR 1.4; PROTIME 14.6 Seconds (9.3-11.4)
[2020-06-17 08:29] LABS: GGTP 68 U/L (5-55)
[2020-06-17 08:32] LABS: ALBUMIN 1.3 g/dL (3.4-5.0); CREATININE 1.3 mg/dL (0.6-1.0); DIRECT BILIRUBIN 0.5 mg/dL (<0.1-0.2); TOTAL BILIRUBIN 1.1 mg/dL (0.2-1.0); TOTAL PROTEIN 5.1 g/dL (6.4-8.2)
[2020-06-17 08:59] LABS: CALCIUM 8.1 mg/dL (8.5-10.1); PLATELET COUNT 30 thou/uL (150-400); TROPONIN-I 0.07 ng/mL (<0.06)
[2020-06-17 09:00] LABS: PLATELET ESTIMATE MARKEDLY DECREASED
[2020-06-17 09:25] LABS: BE(vivo) 2.7 mmol/L (-2 to +3); HCO3 26.7 mmol/L (22.0-26.0); PCO2 39.1 mmHg (35.0-45.0); PO2 106.4 mmHg (80.0-100.0); pH 7.453 (7.360-7.450); sO2 98.1 % (92.0-98.0)
[2020-06-17 12:53] LABS: HEMOGLOBIN 7.9 gm/dL (12.0-15.0); WBC 9.2 thou/uL (4.0-11.0)
[2020-06-17 12:55] LABS: ABSOLUTE NEUTROPHILS 5.8 thou/uL (1.4-8.2); BASOPHILS 0.4 % (0.0-2.0); EOSINOPHILS 1.8 % (0.0-3.0); HEMATOCRIT 23.4 % (37.0-47.0); LYMPHOCYTES 28.3 % (24.0-44.0); MCH 31.3 pg (26.0-34.0); MCV 92.2 fL (80.0-100.0); MONOCYTES 5.8 % (1.0-8.0); POLYS 63.7 % (36.0-66.0); RBC 2.54 mil/uL (4.20-5.00); RDW 17.2 % (10.5-14.5)
[2020-06-17 13:11] LABS: APTT 33.1 Seconds (24.5-32.8); FIBRINOGEN 351.3 mg/dL (210-360); INR 1.4; PROTIME 14.5 Seconds (9.3-11.4)
[2020-06-17 13:19] LABS: ALBUMIN 1.3 g/dL (3.4-5.0); CALCIUM 7.6 mg/dL (8.5-10.1); CREATININE 1.3 mg/dL (0.6-1.0); DIRECT BILIRUBIN 0.6 mg/dL (<0.1-0.2); POTASSIUM 3.1 mmol/L (3.5-5.1); TOTAL BILIRUBIN 1.1 mg/dL (0.2-1.0); TOTAL PROTEIN 5.3 g/dL (6.4-8.2)
[2020-06-17 14:08] LABS: PLATELET COUNT 33 thou/uL (150-400)
--- NOTE | 2020-06-17 19:07 | NUR ---
per john PERALTA to hold meds. sodium bicard running. labs per MTN throughout day. family vist at 1300. Dr. Sommer and Kiley visiting w/family. 1600 nuclear scan of brain completed.
[2020-06-18] VITALS (31 sets, daily range): BP systolic 88–139; BP diastolic 46–85
--- NOTE | 2020-06-18 04:50 | NUR ---
This RN to beside at 1900. Received report from KANDACE Paredes, discussed Dr. Cao's report declaring brain . PEr my assessments, patient is totally unresponsive and patient scored a GCS of 3. This RN spoke to MTN around 0430 this morning regarding medications, labs and status. MTN to assess patient between 5097-9579 and to discuss and observe Dr. Cao assess patient. Plan to further evaluate with daughter in the morning and possibly go comfort care. Patient not progressing towards goals.
[2020-06-18 05:29] LABS: EOSINOPHILS 1.3 % (0.0-3.0); RBC 2.35 mil/uL (4.20-5.00); WBC 8.3 thou/uL (4.0-11.0)
[2020-06-18 05:30] LABS: APTT 34.5 Seconds (24.5-32.8); FIBRINOGEN 344.7 mg/dL (210-360); INR 1.5; PROTIME 15.3 Seconds (9.3-11.4)
[2020-06-18 05:31] LABS: ABSOLUTE NEUTROPHILS 5.6 thou/uL (1.4-8.2); BASOPHILS 0.7 % (0.0-2.0); HEMATOCRIT 21.7 % (37.0-47.0); HEMOGLOBIN 7.4 gm/dL (12.0-15.0); LYMPHOCYTES 25.1 % (24.0-44.0); MCH 31.6 pg (26.0-34.0); MCHC 34.3 g/dL (28.0-37.0); MONOCYTES 4.6 % (1.0-8.0); PLATELET COUNT 27 thou/uL (150-400); POLYS 68.3 % (36.0-66.0); RDW 16.7 % (10.5-14.5)
[2020-06-18 05:40] LABS: ALBUMIN 1.2 g/dL (3.4-5.0); DIRECT BILIRUBIN 0.5 mg/dL (<0.1-0.2); TOTAL PROTEIN 5.2 g/dL (6.4-8.2)
[2020-06-18 06:01] LABS: HCO3 30.6 mmol/L (22.0-26.0); PCO2 38.9 mmHg (35.0-45.0); PO2 121.6 mmHg (80.0-100.0); pH 7.513 (7.360-7.450); sO2 98.7 % (92.0-98.0)
[2020-06-18 09:34] LABS: CALCIUM 7.8 mg/dL (8.5-10.1); CREATININE 1.4 mg/dL (0.6-1.0); POTASSIUM 3.2 mmol/L (3.5-5.1)
--- NOTE | 2020-06-18 12:10 | NUR ---
8591 - PT'S KI CALLED WANTING TO RETREIVE THE RESULT OF THE NEUROLOGIC EXAM BY , RN REPORTED TO THE PT THAT THE EXAMINATION HAS NOT OCCURED YET AND PER APNEA TEST NEEDS TO BE PERFORMED. RN NOTIFIED THE PT'S THAT RN WILL NOTIFY ONCE THE APNEA TEST IS DONE AND TESTINGS FOR NEUROLOGIC STATUS ARE FINALIZED. PT'S KI WAS AGREEABLE TO THIS PLAN. 8084 - PT'S KI CALLED REGARDING THE APNEA TEST AFTER SPEAKING WITH . 'S PRIMARY CONCERN AT THIS TIME WAS BEING ABLE TO BE PRESENT AT THE PT'S FINAL BREATH, WAS UNDER THE IMPRESSION THAT APNEA TEST WOULD BE WHEN THAT OCCURED WHEN WANTED TO BE THERE AT THAT MOMENT. RN INFORMED THE THAT PT WILL BE PLACED BACK ON THE VENTILATOR AFTER THE APENA TEST AND RN WILL NOTIFY ONCE THE TESTING IS DONE. PT STATED UNDERSTANDING AND WAS AGREEABLE TO THIS PLAN WELL.
[2020-06-18 15:27] LABS: BE(vivo) 2.6 mmol/L (-2 to +3); PCO2 34.5 mmHg (35.0-45.0); PO2 285.2 mmHg (80.0-100.0); pH 7.495 (7.360-7.450); sO2 99.7 % (92.0-98.0)
[2020-06-18 15:58] LABS: BE(vivo) -1.4 mmol/L (-2 to +3); HCO3 27.2 mmol/L (22.0-26.0); PO2 56.8 mmHg (80.0-100.0); sO2 83.2 % (92.0-98.0)
[2020-06-18 15:59] LABS: PCO2 66.7 mmHg (35.0-45.0); pH 7.229 (7.360-7.450)
--- NOTE | 2020-06-18 17:51 | NUR ---
PT WAS SEEN TODAY BY // NEURO EXAM WAS PERFORMED BY NEURO, STATED BRAIN PRONOUNCEMENT WILL APPROPERIATE DEPEDNDING ON APNEA TEST; ART WAS PLACED BY ANESTHESIA; ABG WAS PULLED, RT PERFORMED APNEA TEST, PT PASSED APNEA TEST, BRAIN COULD NOT BE CALLED, PT FAMILY NOTIFIED, MTN SPOKE WITH FAMILY, FAMILY DECIDED TO WITHDRAW CARE AT 1300 06/19/20 WITH FAMILY MEMBERS ARRIVING TO ICU TO SAY FINAL GOODBYES AT 0900. PT HAD TO BE STARTED ON PRESSORS, LEVO GTT AT 2 SUSTAINING MAP GREATER THAN 60. PT IS NOT PROGRESSING TOWARDS GOAL. MTN IS IN TOUCH WITH FAMILY AT THIS TIME. TO BE PRESENT DURING EXTUBATION TOMORROW. RN SIGNING OFF.
[2020-06-18 22:01] LABS: CALCIUM 7.6 mg/dL (8.5-10.1); CREATININE 1.5 mg/dL (0.6-1.0)
[2020-06-18 22:09] LABS: POTASSIUM 2.9 mmol/L (3.5-5.1)
[2020-06-19 04:01] VITALS: BP 109/60
[2020-06-19 04:30] VITALS: BP 112/65
[2020-06-19 04:59] VITALS: BP 112/46
--- NOTE | 2020-06-19 05:05 | NUR ---
ASSUMED PT CARE AT 1900. VSS. PT ON LEVO AND D5 1/2 NS. MTN FOLLOWING, ORDERS FOR HGBA1C, CBC, OBTAINED AND IMPLENTED, K REPLACED WITH 40MEQ; TO BE RECHECKED WITH AM LABS. U/O DECLINED OVER NOC; STARTED THE NOC WITH U/O AT 35ML/HR NOW DOWN TO 5ML/HR SEE TREND IN CHART. COMMUNICATED WITH MTN NURSE REGARDING PT STATUS THROUGH THE NOC. WILL CONTINUE TO CLOSELY MONITOR.
[2020-06-19 05:31] VITALS: BP 114/54
[2020-06-19 06:00] VITALS: BP 109/55
[2020-06-19 06:29] LABS: MCV 92.6 fL (80.0-100.0)
[2020-06-19 06:30] VITALS: BP 112/53
[2020-06-19 06:31] LABS: HEMATOCRIT 24.1 % (37.0-47.0); HEMOGLOBIN 8.1 gm/dL (12.0-15.0); MCH 31.1 pg (26.0-34.0); MCHC 33.5 g/dL (28.0-37.0); RBC 2.6 mil/uL (4.20-5.00); RDW 17.4 % (10.5-14.5)
[2020-06-19 06:49] LABS: CALCIUM 7.3 mg/dL (8.5-10.1); CREATININE 1.5 mg/dL (0.6-1.0); POTASSIUM 3.4 mmol/L (3.5-5.1)
--- NOTE | 2020-06-19 10:00 | NUR ---
chart review. family moving towards, MTN and comfort care. will be going to or with mtn nurse. will cont following as needed.
--- NOTE | 2020-06-19 14:33 | NUR ---
PT PRONOUNCED BY DR. BRYANT AT 1331 TODAY. DAUGHTERS AND MOTHER AT BEDSIDE DURING EXTUBATION. UPDATED BY MTN DIE TROUBLE SHOOTER.
--- NOTE | 2020-06-19 16:25 | HC ---
[facility] [place] [address] CONSULTATION Name: TRACEY SIMS Room #: 248-P ADM IN M.R.#: [id number] Admission: 06/02/20 Attend Phys: Fahad Wilkerson MD Discharge: Date of : 68 Report #: [id number] THIS REPORT FOR: cc: Lin Kennedy Beth RNP Smithson, David G. MD ~ DATE OF SERVICE: 06/12/2020 HISTORY OF PRESENT ILLNESS: The patient is a 49-year-old female noted to be premorbidly wheelchair bound with chronic encephalopathy and mental health issues, being managed by outpatient Psychiatry with hallucinations, etc. Her course was further complicated by a CVA in 2017, which left her with residual left-sided hemiparesis. She has been cared for by her . She was admitted this time with mental status changes from her premorbid status and was diagnosed with [id number] toxic metabolic encephalopathy along with urinary tract infection, colitis and sepsis. She was admitted on 06/02/2020. She then had been in-hospital cardiopulmonary arrest on 06/10/2020 with subsequent return of spontaneous circulation. At the time of the code, she was noted to be unresponsive with pupils fixed and dilated. She has been followed by Neurology and the multiple customer service and sales consultant physicians. She is in the ICU, mechanically ventilated. Apparently, has some episodes on discussion with the nurses, so increased alertness and they have tried weaning, but this has not been successful and she is currently on low-dose propofol. Neurology has considered palliative care. There is a reference to some hepatic encephalopathy that may be contributory to her mental status state along with a hypoxic component. Her last noted ammonia; however, was 27 with a high being 54 on 06/06/2020. She was in a hypothermic protocol after the cardiopulmonary arrest. We are seeing her in Rehabilitation Medicine consultation. PRIOR MEDICAL HISTORY: As noted above. She has a prior history of CVA with apparently some brain surgery at that time on 06/23/2017, history of being bedbound since 2017, chronic encephalopathy, chronic ETOH abuse, cirrhosis, mental health issues. MEDICATIONS: Please see the full medication listing. ALLERGIES: No known drug allergies. SOCIAL HISTORY: Known to live with her bedbound. I do not have any further information regarding her prior status functionally. She was noted to have left-sided weakness with a prior stroke and the chronic encephalopathy. REVIEW OF SYSTEMS: Unobtainable. [address] [address] CONSULTATION Name: TRACEY SIMS Room #: 248-P [facility] IN .R.#: [id number] Admission: 06/02/20 Attend Phys: Fahad Wilkerson MD Discharge: Date of : 68 Report #: [id number] Of note, she has followed with the pain management service prior to this admission. Records indicate the patient had been living in an apartment with her spouse. PHYSICAL EXAMINATION: CENTRAL NERVOUS SYSTEM: The patient is in the Intensive Care Unit. She is being mechanically ventilated. She has an NG tube in place. She is on propofol and is sedated. She does respond to pain with some limited withdrawal, left upper extremity. I could not get her to respond to pain, right upper extremity. I was unable to assess her from a volitional manual muscle testing perspective. Tone maybe somewhat decreased left upper extremity and left lower extremity, although it is difficult to assess. GENERAL: She is an overweight white female, 5 feet 2 inches, 200 pounds. ASSESSMENT: A 49-year-old female with the following problem list: 1. Toxic metabolic encephalopathy with noted hypoxic component. 2. Sepsis secondary to urinary tract infection and colitis. 3. Urinary tract infection. 4. Colitis. 5. Cirrhosis of the liver. 6. Prior history of cerebrovascular accident with residual left-sided hemiparesis in 2017. 7. In-hospital cardiopulmonary arrest with subsequent return of spontaneous circulation. This occurred on 06/10/2020. She has undergone treatment with hypothermia in the ICU. 8. Question hepatic encephalopathy, although her ammonia is now normal. 9. History of cirrhosis with longstanding ETOH abuse. 10. Premorbidly bedbound per history, lives with . PLAN: We will need to see how she does as the sedation with propofol is lightened. Hopefully, she will be able to make some functional progress. Note that overall prognosis is guarded and with the significant decreased functional level premorbidly, now complicated by the cardiopulmonary arrest that there is consideration for possible palliative care depending on how she does. At this point, we will be glad to follow along with you regarding her rehab therapy needs. <ELECTRONICALLY SIGNED> By: Johnny Larson MD 06/19/20 [id number] [id number] Johnny Larson MD /NIDA
[2020-06-20 07:08] LABS: GLYCOHEMOGLOBIN (HGB A1C) 4.7 % (4.8-5.6)
== END 2020-06-19 13:31 | DRG 870 ==
LOC: ER 15:13 → EROBS 17:33 → ICU 17:33 → 4W 17:33 → ICU 06-10 02:47
PROVIDERS: Emergency Medicine; Hospitalist; Internal Medicine; Internal Medicine Pulmonary Disease; Nurse Practitioner Family; Pediatrics; Specialist; ADMIT Internal Medicine; ATTEND Internal Medicine
DX: A41.9 Sepsis, unspecified organism (principal); G92 Toxic encephalopathy; J96.21 Acute and chronic respiratory failure with hypoxia; J18.9 Pneumonia, unspecified organism; N39.0 Urinary tract infection, site not specified; K76.6 Portal hypertension; I69.354 Hemiplegia and hemiparesis following cerebral infarction affecting left non-dominant side; K52.9 Noninfective gastroenteritis and colitis, unspecified; R41.0 Disorientation, unspecified; G89.4 Chronic pain syndrome; R32 Unspecified urinary incontinence; K21.9 Gastro-esophageal reflux disease without esophagitis; Z20.828 Contact with and (suspected) exposure to other viral communicable diseases; B37.9 Candidiasis, unspecified; D64.9 Anemia, unspecified; D69.6 Thrombocytopenia, unspecified; I46.9 Cardiac arrest, cause unspecified; K70.30 Alcoholic cirrhosis of liver without ascites; K72.90 Hepatic failure, unspecified without coma; Z79.899 Other long term (current) drug therapy; Z51.5 Encounter for palliative care; Z66 Do not resuscitate
CPT/HCPCS: 10040; 10078; 27000; 50101; 57103; 62110; 62900; 85076